=== PATIENT | female | born 1935 | race Caucasian/White ===

== ENCOUNTER 2017-03-10 09:55 | Emergency (ER) | payer MEDICARE, OTHER ==
[2017-03-10 11:09] VITALS: BP 156/42
--- NOTE | 2017-03-10 11:31 | UC ---
Ear Complaint HPI - HPI Summary HPI Summary: 81 year old female with ear complaint. Here w/ RIGHT ear clogged since Tuesday. Saw ENT on 03/07/17 and had earwax removal in RIGHT ear- saw some bloody discharge from right ear w/ earwax removal. Was told to wait 2 days before putting in hearing aid again and to f/u if pain/clogged persists. Tried applying abx ointment in ear. [ End ] - History of Current Complaint Chief Complaint: UCEar Stated Complaint: RIGHT EAR COMPLAINT Time Seen by Provider: 03/10/17 11:24 Hx Obtained From: Patient Onset/Duration: Gradual Onset Severity Initially: Moderate Severity Currently: Mild Associated Signs/Symptoms: Positive: Discharge, Hearing Loss, Foreign Body Sensation - Allergies/Home Medications Allergies/Adverse Reactions: Allergies Allergy/AdvReac Type Severity Reaction Status Date / Time No Known Allergies Allergy Verified 03/10/17 10:56 Home Medications: Home Medications amLODIPine TAB* [Norvasc 5 mg TAB*] 2.5 mg DAILY 03/10/17 [History Confirmed ] PMH/Surg Hx/FS Hx/Imm Hx Previously Healthy: Yes - Surgical History Surgical History: Yes Surgery Procedure, Year, and Place: bladder surgery. aortic valve/bypass. carotid artery - Family History Known Family History: Positive: Unknown Family History: pt knows of no cardio vascular issues in lineage - Social History Occupation: Retired Lives: With Family Alcohol Use: None Substance Use Type: None Smoking Status (MU): Never Smoked Tobacco When Did the Patient Quit Smoking/Using Tobacco: 40* years ago - Immunization History Most Recent Influenza Vaccination: 2017 Review of Systems ENT: Ear Ache Is Patient Immunocompromised?: No All Other Systems Reviewed And Are Negative: Yes Physical Exam Triage Information Reviewed: Yes Appearance: Well-Appearing, No Pain Distress, Well-Nourished Vital Signs: Initial Vital Signs Temp 97.6 F 03/10/17 10:57 Pulse 52 03/10/17 10:57 Resp 16 03/10/17 10:57 BP 156/42 03/10/17 10:57 Pulse Ox 98 03/10/17 10:57 Vital Signs Reviewed: Yes Eye Exam: Normal ENT Exam: Normal ENT: Positive: TM dull, Other - right ear with some dried blood externally and in the canal and some swelling of the ear canal. no Perforated TM. TM visualized. No injection TM. Dental Exam: Normal Neck exam: Normal Neck: Positive: 1 Respiratory Exam: Normal Cardiovascular Exam: Normal Musculoskeletal Exam: Normal Neurological Exam: Normal Psychological Exam: Normal Skin Exam: Normal Ear Complaint Course/Dx - Course Course Of Treatment: treat at this time and f/u with PCP or Audiology or ENT if needed. - Differential Dx/Diagnosis Differential Diagnosis/HQI/PQRI: Cerumen Impaction, Otitis Externa, Otitis Media , Perforated TM Provider Diagnoses: Right Otitis externa. 2) BP - elevated due to urgent care setting Discharge - Discharge Plan Condition: Good Disposition: HOME Prescriptions: Ciproflox/Dexameth OTIC.SUSP* [Ciprodex OTIC.SUSP*] 1 drop .SEE ORDER BID #1 [id number] Patient Education Materials: Otitis Externa (ED) Referrals: Sagar Bowen MD [Primary Care Provider] - 4 Days
== END 2017-03-10 11:48 | disposition home or self-care (01) ==
LOC: UCCORT 09:55
DX: H60.91 Unspecified otitis externa, right ear (principal); R03.0 Elevated blood-pressure reading, without diagnosis of hypertension; Z95.1 Presence of aortocoronary bypass graft; Z87.891 Personal history of nicotine dependence
CPT/HCPCS: 99212; G0463

== ENCOUNTER 2017-04-13 02:03 | Emergency (ER) | payer MEDICARE, OTHER ==
[2017-04-13 02:10] VITALS: BP 116/71
[2017-04-13] MEDS ORDERED: HYDROcodone/ACETAMIN 5-325 MG* 1 TAB PO ONE (03:36)
[2017-04-13] MEDS ORDERED: Diazepam TAB(*) 2 MG PO ONE (03:37)
[2017-04-13] MEDS ORDERED: Diazepam TAB(*) 5 MG PO ONE (03:43)
--- NOTE | 2017-04-13 04:35 | ED ---
Radha Mace Emily, scribed for Rachel Vallejo MD on 04/13/17 at 0343 . Neck Pain - HPI Summary HPI Summary: This patient is an 82 year old F presenting to [facility] accompanied by daughter with a chief complaint of posterior neck pain radiating to bilateral shoulders that began at 1800 yesterday. Pt describes the CC as stiff. The patient rates the pain 8/10 in severity. Symptoms aggravated by nothing. Symptoms alleviated by nothing. Patient reports bruising. Patient denies CP, SOB, EDWARD, blurred vision , diplopia, ear ache, CP, SOB, abd pain, back pain, dysuria, hematochezia, hematuria, leg edema, anxiety, and depression. Pt reports having a similar episode previously. Pt has an appointment with her meat dresser tomorrow. - History of Current Complaint Chief Complaint: EDNeckComplaint Stated Complaint: NECK PAIN Time Seen by Provider: 04/13/17 03:14 Hx Obtained From: Patient Onset/Duration Of Injury/Symptoms: Hours Timing: Constant, Lasting Hours Onset/Duration: Sudden Onset, Started hours ago, Still Present Severity Initially: Severe Severity Currently: Severe Pain Intensity: 8 Pain Scale Used: 0-10 Numeric Character: Stiff Aggravating Factors: Nothing Alleviating Factors: Nothing Associated Signs & Symptoms: Positive: Bruising. Negative: Headache - Allergies/Home Medications Allergies/Adverse Reactions: Allergies Allergy/AdvReac Type Severity Reaction Status Date / Time No Known Allergies Allergy Verified 04/13/17 02:10 PMH/Surg Hx/FS Hx/Imm Hx Previously Healthy: No Endocrine/Hematology History: Reports: Hx Diabetes Denies: Hx Systemic Lupus Erythematosus Cardiovascular History: Reports: Hx Hypertension Denies: Hx Congestive Heart Failure Respiratory History: Reports: Hx Chronic Obstructive Pulmonary Disease (COPD) History: Denies: Hx Dialysis, Hx Renal Disease Musculoskeletal History: Denies: Hx Rheumatoid Arthritis - Cancer History Cancer Type, 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 aortic valve/bypass. carotid artery Infectious Disease History: No Infectious Disease History: Denies: Traveled Outside the [place] in Last 30 Days - Family History Known Family History: Positive: Unknown Family History: pt knows of no cardio vascular issues in lineage - Social History Occupation: Retired Lives: Alone Alcohol Use: None Substance Use Type: Reports: None Smoking Status (MU): Never Smoked Tobacco Review of Systems Negative: Blurred Vision, Diplopia Negative: Ear Ache Negative: Chest Pain Negative: Shortness Of Breath Positive: Other - Negative hematochezia. Negative: Abdominal Pain Negative: dysuria, hematuria Positive: Other - Positive neck pain. Negative back pain. Negative: Edema Positive: Bruising Negative: Headache Negative: Anxious, Depressed All Other Systems Reviewed And Are Negative: No Physical Exam - Summary Physical Exam Summary: Appearance: Alert, conversive, nontoxic appearing Skin: Warm, dry, no mottling, no rashes, no contusions HEENT: EOMI, PERRL, moist mucous membranes Neck: No masses on the neck. Paraspinal tenderness. Trapezius tenderness. Respiratory: Clear to auscultation, breath sounds present, no rales, no rhonchi , no wheezes Cardiovascular: RRR, pulses are symmetrical in both lower and upper extremities Abdomen: Soft, non-tender Bowel Sounds: Present Musculoskeletal: No CVA tenderness, no obvious deformity, moving all extremities in a grossly normal manner Neurological: A&Ox3, CN II-XII Intact, moving all extremities symmetrically Psychiatric: Normal affect and mood Triage Information Reviewed: Yes Vital Signs On Initial Exam: Initial Vitals Temp Pulse Resp BP Pulse Ox 97.9 F 67 16 116/71 96 04/13/17 02:05 04/13/17 02:05 04/13/17 02:05 04/13/17 02:05 04/13/17 02:05 Vital Signs Reviewed: Yes Diagnostics - Vital Signs Vital Signs Temp Pulse Resp BP Pulse Ox 04/13/17 02:05 97.9 F 67 16 116/71 96 - Laboratory Lab Statement: Any lab studies that have been ordered have been reviewed, and results considered in the medical decision making process. Neck Course/Dx - Course Assessment/Plan: This patient is an 82 year old F presenting to [facility] accompanied by daughter with a chief complaint of posterior neck pain radiating to bilateral shoulders that began at 1800 yesterday. Pt describes the CC as stiff. Physical Exam Findings. Paraspinal tenderness. Trapezius tenderness. In the ED course the patient was given valium and norco. Patient will be discharged with follow up from PCP. The patient is agreeable with this plan. - Diagnoses Provider Diagnoses: Neck muscle strain Discharge - Discharge Plan Condition: Stable Disposition: HOME Patient Education Materials: Cervical Strain (ED) Referrals: Sagar Bowen MD [Primary Care Provider] - Additional Instructions: Follow up with your primary care physician. return if worse or any new symptoms. It is important to take all medications as previously instructed. The documentation as recorded by the Radha rogers Emily accurately reflects the service I personally performed and the decisions made by , Rachel Vallejo MD.
== END 2017-04-13 03:55 | disposition home or self-care (01) ==
LOC: ED 02:03
DX: S16.1XXA Strain of muscle, fascia and tendon at neck level, initial encounter (principal); M54.2 Cervicalgia; X58.XXXA Exposure to other specified factors, initial encounter; Y93.9 Activity, unspecified; Y92.9 Unspecified place or not applicable
CPT/HCPCS: 99282; A9270-GY

== ENCOUNTER 2018-02-18 18:38 | Emergency (ER) | payer MEDICARE, OTHER ==
[2018-02-18 19:31] VITALS: BP 152/48
[2018-02-18] MEDS ORDERED: Albuterol/Ipratropium NEB.SOL* Albuterol 2.5 MG/Ipratropium 0.5 MG 3 ML INH ONE (19:52)
[2018-02-18] MEDS ORDERED: predniSONE TAB* 20 MG PO ONE (19:52)
--- NOTE | 2018-02-18 19:56 | UC ---
Respiratory Complaint HPI - HPI Summary HPI Summary: C/O productive cough for 3 days. Not better with inhalers. H/O COPD. - History of Current Complaint Chief Complaint: UCRespiratory Stated Complaint: COUGH,CONGESTION (HAS COPD) Time Seen by Provider: 02/18/18 19:49 Pain Intensity: 0 - Allergies/Home Medications Allergies/Adverse Reactions: Allergies Allergy/AdvReac Type Severity Reaction Status Date / Time No Known Allergies Allergy Verified 02/18/18 19:22 PMH/Surg Hx/FS Hx/Imm Hx Endocrine History: Diabetes Cardiovascular History: Hypertension Respiratory History: COPD Other Cancer History: Nasal - Surgical History Surgical History: Yes Surgery Procedure, Year, and Place: bladder surgery. aortic valve/bypass. carotid artery - Family History Known Family History: Positive: Hypertension, Diabetes Family History: pt knows of no cardio vascular issues in lineage - Social History Occupation: Retired Lives: Alone Alcohol Use: Occasionally Substance Use Type: None Smoking Status (MU): Former Smoker When Did the Patient Quit Smoking/Using Tobacco: 40* years ago - Immunization History Most Recent Influenza Vaccination: 2017 Review of Systems ENT: Nasal Discharge Respiratory: Shortness Of Breath, Cough Is Patient Immunocompromised?: No All Other Systems Reviewed And Are Negative: Yes Physical Exam Triage Information Reviewed: Yes Appearance: Well-Appearing, No Pain Distress, Well-Nourished Vital Signs: Initial Vital Signs Temp 97.6 F 02/18/18 19:26 Pulse 61 02/18/18 19:26 Resp 17 02/18/18 19:26 BP 152/48 02/18/18 19:26 Pulse Ox 99 02/18/18 19:26 Vital Signs Reviewed: Yes Eyes: Positive: Conjunctiva Clear ENT: Positive: Pharynx normal, Nasal congestion, TMs normal Neck exam: Normal Respiratory: Positive: Decreased breath sounds, Wheezing - Occasional expiratory wheezes Cardiovascular: Positive: RRR, Murmur:Sys:Grade _?_/ - 2/6, Other: - paradoxically split S2 Musculoskeletal Exam: Normal Neurological Exam: Normal Psychological Exam: Normal Skin Exam: Normal UC Diagnostic Evaluation - Laboratory O2 Sat by Pulse Oximetry: 99 Respiratory Course/Dx - Differential Dx/Diagnosis Differential Diagnosis/HQI/PQRI: Asthma, Bronchitis, Exacerbation Of COPD, Lower Resp Infection Provider Diagnoses: COPD with acute exacerbation Discharge - Sign-Out/Discharge Documenting (check all that apply): Patient Departure All imaging exams completed and their final reports reviewed: No Studies - Discharge Plan Condition: Stable Disposition: HOME Prescriptions: DOXYcycline CAP(*) [DOXYcycline 100MG CAP(*)] 100 mg PO BID #14 cap predniSONE TAB* [Deltasone 20 MG TAB*] 60 mg PO DAILY #18 tab Patient Education Materials: COPD (Chronic Obstructive Pulmonary Disease) (ED) , Prednisone (By mouth), Doxycycline (By mouth) Referrals: Sagar Bowen MD [Primary Care Provider] - - Billing Disposition and Condition Condition: STABLE Disposition: Home
[2018-02-18] MEDS: DOXYcycline CAP(*) 100 MG PO ONE ×2 (20:06→20:07)
== END 2018-02-18 20:31 | disposition home or self-care (01) ==
LOC: UCCORT 18:38
DX: J44.1 Chronic obstructive pulmonary disease with (acute) exacerbation (principal); E11.9 Type 2 diabetes mellitus without complications; I10 Essential (primary) hypertension; Z87.891 Personal history of nicotine dependence
CPT/HCPCS: 99213; A9270-GY; G0463; J7512

== ENCOUNTER 2018-10-11 20:54 | Emergency (ER) | payer MEDICARE, OTHER ==
[2018-10-11 21:21] VITALS: BP 149/51
--- NOTE | 2018-10-11 21:28 | UC ---
Upper Extremity HPI - HPI Summary HPI Summary: Hit her finger yesterday she thinks, and her L ring finger began to swell. Had to come in tonight b/c her L ring was making her L finger worse. unable to remove ring. she is going to [facility] - History of Current Complaint Chief Complaint: UCUpperExtremity Stated Complaint: LT RING FINGER COMPLAINT Time Seen by Provider: 10/11/18 21:27 Hx Obtained From: Patient Pain Intensity: 8 Pain Scale Used: 0-10 Numeric - Allergies/Home Medications Allergies/Adverse Reactions: Allergies Allergy/AdvReac Type Severity Reaction Status Date / Time No Known Allergies Allergy Verified 10/11/18 21:21 PMH/Surg Hx/FS Hx/Imm Hx Previously Healthy: Yes Endocrine History: Diabetes Cardiovascular History: Cardiac Disease, Hypertension, Atrial Fibrillation - Surgical History Surgical History: Yes Surgery Procedure, Year, and Place: bladder surgery. aortic valve/bypass. carotid artery. right eye - Family History Known Family History: Positive: Unknown, Hypertension, Diabetes Family History: pt knows of no cardio vascular issues in lineage - Social History Alcohol Use: Rare Substance Use Type: None Smoking Status (MU): Former Smoker When Did the Patient Quit Smoking/Using Tobacco: 40* years ago - Immunization History Most Recent Influenza Vaccination: 2017 Review of Systems All Other Systems Reviewed And Are Negative: Yes Constitutional: Negative: Negative Skin: Negative: Bruising Musculoskeletal: Positive: Arthralgia - L ring finger, Edema - L ring finger Physical Exam Triage Information Reviewed: Yes Appearance: Well-Appearing Vital Signs: Initial Vital Signs Temp 97.6 F 10/11/18 21:16 Pulse 64 10/11/18 21:16 Resp 17 10/11/18 21:16 BP 149/51 10/11/18 21:16 Pulse Ox 98 10/11/18 21:16 Vital Signs Reviewed: Yes ENT: Positive: Other - +hearing aides Musculoskeletal: Positive: No Edema - at wrist, Other: - L ring finger swollen w / ring obstructing . Neurological: Positive: Alert Upper Extremity Course/Dx - Course Course Of Treatment: L ring finger swelling after she injured it. There was concern there was a possible fx given degree of swelling; xray did not show obvious fx. Ring cutter used with no complication. Plan is for her to keep ice on it and return if it begins to worsen.. - Differential Dx/Diagnosis Differential Diagnosis/HQI/PQRI: Contusion, Fracture (Closed), Sprain Provider Diagnosis: Swelling of finger joint of left hand Discharge - Sign-Out/Discharge Documenting (check all that apply): Patient Departure All imaging exams completed and their final reports reviewed: No Studies - Discharge Plan Condition: Good Disposition: HOME Patient Education Materials: Swollen Joint (ED) Referrals: Sagar Bowen MD [Primary Care Provider] - Additional Instructions: IF worsening please return. - Billing Disposition and Condition Condition: GOOD Disposition: Home - Attestation Statements Provider Attestation: Per institutional requirements, I have reviewed the chart, however, I was not consulted specifically or made aware of this patient by the midlevel provider. I did not personally evaluate, interact with , or disposition this patient.
== END 2018-10-11 21:55 | disposition home or self-care (01) ==
LOC: UCCORT 20:54
DX: M79.89 Other specified soft tissue disorders (principal); E11.9 Type 2 diabetes mellitus without complications; I10 Essential (primary) hypertension; I48.91 Unspecified atrial fibrillation; Z87.891 Personal history of nicotine dependence
CPT/HCPCS: 73140; 99212; G0463

== ENCOUNTER 2019-01-22 13:22 | Emergency (ER) | payer MEDICARE, OTHER ==
--- OUTSIDE RECORDS SUMMARY | 2019-01-22 13:37 | XMS REPORT | Continuity of Care Document ---
:1935 External Reference #:[id number] Author Name Sagar Bowen M.D. (transmitted by agent of provider Dorie Colon) Address [address], [place] [address] Care Team Providers Name Role Phone Vj Fonseca MD - Cardiovascular Care Team Information Supervisor [employer] Disease Hakeem Snow DPM - Systems Test Analyst Care Team Information Supervisor [employer] Problems Active Problems Provider Date Type 2 diabetes mellitus Sagar Bowen M.D. Onset: 11/30/2010 Benign essential hypertension Sagar Bowen M.D. Onset: 11/30/2010 Pure hypercholesterolemia Sagar Bowen M.D. Onset: 11/30/2010 Asthma without status asthmaticus Sagar Bowen M.D. Onset: 11/30/2010 Aortic valve disorder Martinez Troy M.D., [facility], Onset: 12/26/2014 [facility] Cardiovascular symptoms Martinez Troy M.D., [facility], Onset: 12/26/2014 [facility] Left bundle branch block Martinez Troy M.D., [facility], Onset: 12/26/2014 [facility] Hyperlipidemia Martinez Troy M.D., [facility], Onset: 12/26/2014 [facility] Heart valve replacement Martinez Troy M.D., [facility], Onset: 02/24/2015 [facility] Essential hypertension Martinez Troy M.D., [facility], Onset: 02/24/2015 [facility] Atherosclerotic heart disease of [place] Martinez Troy M.D., [facility], Onset: 02/24 coronary artery without angina pectoris [facility] Paroxysmal atrial fibrillation Martinez Troy M.D., [facility], Onset: 02/24/2015 [facility] Pulmonary embolism Martinez Troy M.D., [facility], Onset: 02/24/2015 [facility] Chronic ischemic heart disease, Martinez Troy M.D., [facility], Onset: 04/28/2015 unspecified [facility] Arteriosclerosis of coronary artery Martinez Troy M.D., [facility], Onset: 2015 bypass graft [facility] Impacted cerumen Benjamin Romero M.D. Onset: 03/07/2017 Sensorineural hearing loss Benjamin Romero M.D. Onset: 03/07/2017 Palpitations Martinez Troy M.D., [facility], Onset: 04/13/2017 [facility] Thoracic aortic ectasia Scout Arias M.D., Onset: 06/09/2018 [facility] Social History Type Date Description Comments Sex Unknown Tobacco Use Start: Unknown 2 cigarettes/day for 20+ years Tobacco Use Start: Unknown End: Former Cigarette quit age 38 Unknown Smoker Smoking Status Reviewed: 12/04/18 Former Cigarette quit age 38 Smoker Tobacco Use Start: Unknown Never Smoked Cigars Tobacco Use Start: Unknown Never Smoked A Pipe Smokeless Tobacco Never Used Smokeless Tobacco ETOH Use 11/24/2012 Rarely consumes alcohol Tobacco Use Start: Unknown End: Patient is a former Couple cigs per day, Unknown smoker quit 40 yrs ago Recreational Drug Use Denies Drug Use Exercise Type/Frequency Exercises regularly treadmill at the fitness center for 30 min 3-4x/week Allergies, Adverse Reactions, Alerts Description No Known Drug Allergies Medications Active Medications SIG Qnty Indications Ordering Date Provider Amlodipine Besylate 1 by mouth every 90tabs I10 Sagar Londono 06/19/2018 day Joycelyn Bowen 5mg Tablets Altace take one capsule 90caps Sagar Londono 06/13/2018 10mg by mouth once a Joycelyn Bowen Capsules day Onetouch Ultrasoft use to test blood 100units Sagar Londono 05/31/2018 Lancets glucose three Joycelyn Bowen Misc times a day and as needed Nitrostat one sl q5min up 14tabs I25.10 Martinez Troy, 12/22/2016 0.3mg to 3 doses as Joycelyn FACC, Tablets Sub needed [facility] Onetouch Ultra Blue Test One Time A 100units Sagar ERizwan 07/26/2016 Day Joycelyn Bowen Strips Onetouch Ultra 2 test blood sugar 100units Sagar E. 07/10/2015 bid or prn Joycelyn Bowen w/Device Kit Proair HFA 2 puffs by mouth 8.5units Sagar E. 06/12/2015 every 4 hours as Joycelyn Bowen 108(90Base) mcg/Act needed Aerosol Caltrate 600+D 1 by mouth twice 180tabs Sagar E. 06/12/2015 a day Joycelyn Bowen [id number]-[id number] Tablets Stool Softener 400mg po at hs 360caps Sagar E. 06/12/2015 Joycelyn Bowen 100mg Capsules Vitamin C 1 by mouth qd 90units Sagar E. 06/12/2015 500mg Joycelyn Bowen Chewtabs Coumadin take 5 mg daily 100tabs Sagar E. 06/12/2015 5mg or as directed Joycelyn Bowen Tablets based on inr- takes 1 and 1/2 tabs 7 days a week 06/21/18 Spiriva Handihaler Inhale The 90caps Sagar E. 06/12/2015 Contents Of One Joycelyn Bowen 18mcg Capsules Capsule (2 Puffs) By Mouth Via Handihaler Daily Folic Acid Take One Tablet 90tabs Sagar E. 06/12/2015 1mg By Mouth Every Joycelyn Bowen Tablets Day Atorvastatin Take One Tablet 90tabs Sagar E. 01/23/2015 Calcium By Mouth Every Joycelyn Bowen 40mg Day Tablets Symbicort inhale two puffs 30.6units Sagar E. 12/05/2014 by mouth twice a Joycelyn Bowen 160-4.5mcg/Act day Aerosol Aerochamber Plus use as directed 1units J45.909 Bertin Marquez NP 12/05/2014 with puffer Misc Metformin HCL Take Two Tablets 360tabs Sagar E. 09/24/2008 500mg By Mouth Twice A Joycelyn Bowen Tablets Day Onetouch Ultrasoft test blood 300units Sagar E. 10/03/2007 Lancets glucose qd-tid as Joycelyn Bowen [facility] needed Onetouch Ultra test blood 1units Sagar E. 10/03/2007 Glucose Monitor glucose qd-tid or Joycelyn Bowen prn Vitamin D3 1 by mouth every 90caps Sagar E. 1000Unit day Joycelyn Bowen Capsules Preservision Areds 1 capsule twice a 180caps Sagar E. day w/food Joycelyn Bowen Capsules Centrum Silver 1 by mouth every 90tabs Sagar E. Ultra Womens day Joycelyn Bowen Tablets Metamucil take 2.08 g by 90caps Sagar E. 0.52gm mouth at hs Joycelyn Bowen Capsules Aspirin take 1 tablet by 90tabs Sagar Londono 81mg mouth once daily Joycelyn Bowen Tablets Furosemide take 1 tablet by 180tabs Scout Leavitt 20mg mouth twice a Joycelyn Arias, Tablets day. LYNN CLOUD Metoprolol Tartrate take 1 tablet 180tabs Scout Leavitt twice daily Joycelyn Arias, 25mg Tablets LYNN CLOUD Klor-Con M20 take one tablet 90tabs Scout Leavitt 20Meq by mouth every Joycelyn Arias, Tablets ER day LYNN CLOUD Amoxicillin take four 4caps Arabella 500mg capsules by mouth Joycelyn Almanzar Capsules 1 hour prior to procedure Ipratropium [place] instill 2 sprays Unknown into each nostril 0.06% Solution twice a day as needed for runny nose Loratadine once a day for Unknown 10mg allergies as Capsules needed Medications Administered in Office Medication SIG Qnty Indications Ordering Provider Date Inj, Regadenoson, 0.1 MG Scout Arias M.D., 11/06/2018 Injection LYNN CLOUD Technetium TC 99M Scout Arias M.D., 11/06/2018 Tetrofosmin, Per Unit Dose FACC, FASNC Up To 40 Millicuries Injection Technetium TC 99M Scout Arias M.D., 11/06/2018 Tetrofosmin, Per Unit Dose FACC, FASNC Up To 40 Millicuries Injection Celestone 3 mg and 3mg Inderjit Hinojosa MD 09/11/2018 Injection Celestone 3 mg and 3mg Inderjit Hinojosa MD 06/16/2018 Injection Shingrix no bill inj-pt Unknown 05/05/2018 brought in Injection Shingrix no bill inj-pt Unknown 01/18/2018 brought in Injection Influenza Virus Vaccine Unknown 01/23/2015 Injection Immunizations CPT Code Status Date Vaccine Lot # [id number] Given 01/01/2017 Influenza Virus Vaccine, Quadrivalent, Split, Preservative Free 82041 Given 01/09/2016 Fluzone High Dose 56159 Given 12/05/2014 Pneumococcal Conjugate Vaccine 13 Valent For [id number] Intramuscular Use 99866 Given 11/23/2014 Pneumococcal Conjugate Vaccine 13 Valent For Intramuscular Use 61177 Given 07/22/2014 Tdap - Tetanus/Diptheria/Acellular Pertussis [id number] Q2039 Given 01/23/2014 Flu Vaccine NOS 47760 Given 01/22/2014 Influenza Virus Vaccine, Quadrivalent, Split, Preservative Free 52140 Given 01/22/2014 Influenza Virus Vaccine, Quadrivalent, Split, [id number] Preservative Free 38914 Given 01/15/2013 Flu Vaccine Split Virus Preservative Free For [id number] Indiv 3Yr Older Q2038 Given 12/30/2011 Fluzone Vaccine [id number] 57580 Given 12/30/2011 Zoster (Zostavax) [id number] 70191 Given 09/30/2004 Td (History By Patient) 85159 Given 10/14/2003 Pneumovax (History By Patient) Vital Signs Date Vital Result Comment 12/04/2018 3:11pm Height 62.5 inches 5'2.50" Weight 197.25 lb Heart Rate 71 /min BP Systolic Sitting 147 mmHg Lue lg cuff BP Diastolic Sitting 64 mmHg Lue lg cuff O2 % BldC Oximetry 95 % BMI (Body Mass Index) 35.5 kg/m2 11/08/2018 1:54pm Height 62.5 inches 5'2.50" Weight 197.00 lb Clothes Heart Rate 78 /min Radial BP Systolic Sitting 160 mmHg Lue LG cuff BP Diastolic Sitting 60 mmHg Lue LG cuff BP Systolic Standing 160 mmHg Lue Lg cuff BP Diastolic Standing 60 mmHg Lue Lg cuff BMI (Body Mass Index) 35.5 kg/m2 Ejection Fraction 55-60% Echocardiogram 06/01/2018 Results Test Date Facility Test Result H/L Range Note Protime W/ Inr 11/28/2018 Other Rendering Inr 2.9 Protime W/ Inr 10/24/2018 Other Rendering Inr 4.0 Protime W/ Inr 09/21/2018 Other Rendering Inr 2.3 Protime W/ Inr 09/14/2018 Other Rendering Inr 4.1 Protime W/ Inr 08/17/2018 Other Rendering Inr 2.8 Protime W/ Inr 08/03/2018 Other Rendering Inr 1.6 Basic Metabolic 07/31/2018 [facility] Sodium 140 mmol/L Normal 135-[address] [place] [address] [phone] Potassium 4.5 mmol/L Normal 3.5-5.0 Chloride 106 mmol/L Normal 101-111 Co2 Carbon Dioxide 27 mmol/L Normal 22-32 Anion Gap 7 mmol/L Normal 2-11 Glucose 107 mg/dL High 70-100 Blood Urea Nitrogen 26 mg/dL High 6-24 Creatinine 0.75 mg/dL Normal 0.51-0.95 BUN/Creatinine Ratio 34.7 High 8-20 Calcium 9.9 mg/dL Normal 8.6-10.3 Egfr Non- 73.6 >60 Egfr 89.1 >60 1 Protime W/ Inr 07/24/2018 Other Rendering Inr 1.8 Protime W/ Inr 07/10/2018 [facility] Inr [address] [place] [address] [phone] Protime W/ Inr 06/21/2018 Other Rendering Inr 2.1 Urine Microalbumin 06/19/2018 [facility] Ur Microalbumin < 15.0 [address] (mg/L) [place] [address] [phone] Urine Creatinine 43.89 mg/dL Urine Microalbumin/Creatinine TNP <31 3 Protime W/ Inr 06/14/2018 Other Rendering Inr 1.7 Lipid Profile 06/12/2018 [facility] Triglycerides 158 mg/dL 4 (Trig/Chol/HDL) [address] [place] [address] [phone] Cholesterol 145 mg/dL 5 HDL Cholesterol 46.0 mg/dL 6 LDL Cholesterol 67 mg/dL 7 Comp Metabolic 06/12/2018 [facility] Sodium 139 mmol/L Normal 135-[address] [place] [address] [phone] Potassium 4.3 mmol/L Normal 3.5-5.0 Chloride 104 mmol/L Normal 101-111 Co2 Carbon Dioxide 26 mmol/L Normal 22-32 Anion Gap 9 mmol/L Normal 2-11 Glucose 113 mg/dL High 70-100 Blood Urea Nitrogen 17 mg/dL Normal 6-24 Creatinine 0.78 mg/dL Normal 0.51-0.95 BUN/Creatinine Ratio 21.8 High 8-20 Calcium 9.6 mg/dL Normal 8.6-10.3 Total Protein 6.6 g/dL Normal 6.4-8.9 Albumin 3.9 g/dL Normal 3.2-5.2 Globulin 2.7 g/dL Normal 2-4 Albumin/Globulin Ratio 1.4 Normal 1-3 Total Bilirubin 0.30 mg/dL Normal 0.2-1.0 Alkaline Phosphatase 64 U/L Normal 34-104 Alt 16 U/L Normal 7-52 Ast 18 U/L Normal 13-39 Egfr Non- 70.4 >60 Egfr 85.1 >60 8 Laboratory test 06/12/2018 [facility] Hemoglobin A1c 6.0 % High 4.0-5.6 9 finding [address] [facility] (Glyco HGB) [place] [address] [phone] Protime W/ Inr 06/07/2018 Other Rendering Inr 1.9 1 Because ethnic data is not always readily available, this report includes an eGFR for both -Americans and non- Americans. The National Kidney Disease Education Program (NKDEP) does not endorse the use of the MDRD equation for patients that are not between the ages of 18 and 70, are , have extremes of body size, muscle mass, or nutritional status, or are non- or non-. According to the National Kidney Foundation, irrespective of diagnosis, the stage of the disease is based on the level of kidney function: Stage Description GFR(mL/min/1.73 m(2)) 1 Kidney damage with normal or decreased GFR 90 2 Kidney damage with mild decrease in GFR 60-89 3 Moderate decrease in GFR 30-59 4 Severe decrease in GFR 15-29 5 Kidney failure <15 (or dialysis) 2 [id number] 3 Unable to calculate due to low microalbumin 4 Desirable: <150 Borderline High: 150-199 High: 200-499 Very High: >500 5 Desirable: <200 Borderline High: 200-239 High: >239 6 Low: <40 Desirable: 40-60 High: >60 7 Desirable: <100 Near Optimal: 100-129 Borderline High: 130-159 High: 160-189 Very High: >189 8 Because ethnic data is not always readily available, this report includes an eGFR for both -Americans and non- Americans. The National Kidney Disease Education Program (NKDEP) does not endorse the use of the MDRD equation for patients that are not between the ages of 18 and 70, are , have extremes of body size, muscle mass, or nutritional status, or are non- or non-. According to the National Kidney Foundation, irrespective of diagnosis, the stage of the disease is based on the level of kidney function: Stage Description GFR(mL/min/1.73 m(2)) 1 Kidney damage with normal or decreased GFR 90 2 Kidney damage with mild decrease in GFR 60-89 3 Moderate decrease in GFR 30-59 4 Severe decrease in GFR 15-29 5 Kidney failure <15 (or dialysis) 9 Therapeutic target for the treatment of diabetes mellitus patients is <7% HBA1C, and in selective patients <6.0%. Please refer to [place] [employer] diabetic care guidelines for further information. Procedures Date Code Description Status 11/08/2018 16307 EKG Tracing & Interpretation Completed 11/06/2018 40096 Stress Test Completed 11/06/2018 83767 Myocardial Perfusion Imaging Tomographic (Spect) Completed Multiple Studies 09/11/2018 70450 Inject/Drain Joint/Bursa Major W/O US Completed 08/01/2018 [id number] Diabetic Foot Exam Completed 07/10/2018 [id number] Mammogram Completed 06/26/2018 [id number] Diabetic Retinal Eye Exam Completed 06/16/2018 27289 Rad Shoulder Comp, Min. 2 Views Completed 06/16/2018 63812 Inject Tendon Sheath Or Ligament Aponeurosis Eg Completed Plantar Fascia 06/09/2018 89382 EKG Tracing & Interpretation Completed 05/02/2018 [id number] Diabetic Foot Exam Completed 01/20/2018 [id number] Diabetic Foot Exam Completed 07/07/2017 [id number] Mammogram Completed 05/18/2017 [id number] Diabetic Retinal Eye Exam Completed 04/15/2017 [id number] Diabetic Foot Exam Completed 11/19/2015 [id number] Diabetic Retinal Eye Exam Completed 12/09/2014 [id number] Diabetic Retinal Eye Exam Completed 07/05/2014 [id number] Mammogram Completed 12/03/2013 [id number] Diabetic Retinal Eye Exam Completed 07/06/2013 [id number] Bone Mineral Density Test Completed 07/06/2013 [id number] Mammogram Completed 06/04/2013 [id number] Diabetic Retinal Eye Exam Completed 01/03/2012 [id number] Colonoscopy Completed 12/14/2011 [id number] Diabetic Foot Exam Completed 11/27/2011 [id number] Mammogram Completed 11/18/2010 [id number] Mammogram Completed 10/22/2009 [id number] Mammogram Completed 02/08/2007 [id number] Colonoscopy Completed Medical Devices Description No Information Available Encounters Type Date Location Provider Dx Diagnosis Office Visit 11/08/2018 [facility] Scout Leavitt Z01.810 Encounter for 2:15p [facility] [place] Arias M.D., preprocedural FACC, FASNC cardiovascular examination I25.10 Athscl heart disease of [place] coronary artery w/o ang pctrs I48.0 Paroxysmal atrial fibrillation Z95.2 Presence of prosthetic heart valve R94.31 Abnormal electrocardiogram [ECG] [EKG] R93.89 Abnormal findings on dx imaging of oth body structures Z79.01 ocean transportation intermediary (current) use of anticoagulants Z95.1 Presence of aortocoronary bypass graft Office Visit 11/07/2018 3:00p [place] Londono Z01.810 Encounter for Pablo Bowen M.D. preprocedural Ccmob cardiovascular examination R93.89 Abnormal findings on dx imaging of oth body structures Z80.41 Family history of malignant neoplasm of ovary I10 Essential (primary) hypertension E11.9 Type 2 diabetes mellitus without complications J45.909 Unspecified asthma, uncomplicated I25.10 Athscl heart disease of [place] coronary artery w/o ang pctrs I48.0 Paroxysmal atrial fibrillation Z95.2 Presence of prosthetic heart valve Office Visit 09/11/2018 10:30a Orthopedic Inderjit Norton M75.41 Impingement Services [facility] [place] Hinojosa MD syndrome of right AT [place] shoulder M75.21 Bicipital tendinitis, right shoulder Office Visit 09/07/2018 3:00p [facility] Sagar Londono I10 Essential ( primary) Pablo - Joycelyn Bowen hypertension Ccmob Office Visit 07/31/2018 1:20p [facility] Sagar Londono Z01.810 Encounter for Pablo - Joycelyn Bowen preprocedural Ccmob cardiovascular examination E11.9 Type 2 diabetes mellitus without complications I10 Essential (primary) hypertension Z95.2 Presence of prosthetic heart valve J45.909 Unspecified asthma, uncomplicated Office Visit 06/20/2018 3:40p [facility] D[facility]at[facility] AT Herbert Zimmerman, L70.0 Acne vulgaris Lyndon REYEZ D22.9 Melanocytic nevi, unspecified L21.8 Other seborrheic dermatitis D17.22 Benign lipomatous neoplasm of skin, subcu of left arm L82.1 Other seborrheic keratosis R60.0 Localized edema Office Visit 06/16/2018 9:00a Orthopedic Inderjit Norton M75.21 Bicipital Services [facility] [place] Hinojosa MD tendinitis, right AT [place] shoulder M25.511 Pain in right shoulder Office Visit 06/09/2018 11:15a Cardiology Scout Tree I77.810 Thoracic aortic Services Of [facility] AT Joycelyn Arias, ectasia [place] FACC, FASNC Z95.2 Presence of prosthetic heart valve Z95.1 Presence of aortocoronary bypass graft Assessments Date Code Description Provider 12/04/2018 I10 Essential (primary) hypertension Sagar Bowen M.D. 12/04/2018 E11.9 Type 2 diabetes mellitus without Sagar Bowen M.D. complications 12/04/2018 J45.909 Unspecified asthma, uncomplicated Sagar Bowen M.D. 12/04/2018 I48.0 Paroxysmal atrial fibrillation Sagar Bowen M.D. 12/04/2018 Z95.2 Presence of prosthetic heart valve Sagar Bowen M.D. 11/08/2018 Z01.810 Encounter for preprocedural Scout Arias M.D., cardiovascular examination [facility] 11/08/2018 I25.10 Athscl heart disease of [place] Scout Arias M.D., coronary artery w/o ang pctrs [facility] 11/08/2018 I48.0 Paroxysmal atrial fibrillation Scout Arias M.D., [facility] 11/08/2018 Z95.2 Presence of prosthetic heart valve Scout Arias M.D., [facility] 11/08/2018 R94.31 Abnormal electrocardiogram [ECG] [EKG] Scout Arias M.D., [facility] 11/08/2018 R93.89 Abnormal findings on dx imaging of [facility] Scout Arias M.D., body structures [facility] 11/08/2018 Z79.01 longterm (current) use of Scout Arias M.D., anticoagulants [facility] 11/08/2018 Z95.1 Presence of aortocoronary bypass graft Scout Arias M.D., [facility] 11/07/2018 Z01.810 Encounter for preprocedural Sagar Bowen M.D. cardiovascular examination 11/07/2018 R93.89 Abnormal findings on dx imaging of [facility] Sagar Bowen M.D. body structures 11/07/2018 Z80.41 Family history of malignant neoplasm Sagar Bowen M.D. of ovary 11/07/2018 I10 Essential (primary) hypertension Sagar Bowen M.D. 11/07/2018 E11.9 Type 2 diabetes mellitus without Sagar Bowen M.D. complications 11/07/2018 J45.909 Unspecified asthma, uncomplicated Sagar Bowen M.D. 11/07/2018 I25.10 Atherosclerotic heart disease of Sagar Bowen M.D. [place] coronary artery with 11/07/2018 I48.0 Paroxysmal atrial fibrillation Sagar Bowen M.D. 11/07/2018 Z95.2 Presence of prosthetic heart valve Sagar Bowen M.D. 11/06/2018 I25.10 Atherosclerotic heart disease of Scout Airas M.D., [place] coronary artery with [facility] 11/06/2018 Z95.1 Presence of aortocoronary bypass graft Scout Arias M.D., [facility] 09/11/2018 M75.41 Impingement syndrome of right shoulder Inderjit Hinojosa MD 09/11/2018 M75.21 Bicipital tendinitis, right shoulder Inderjit Hinojosa MD 09/07/2018 I10 Essential (primary) hypertension Sagar Bowen M.D. 07/31/2018 Z01.810 Encounter for preprocedural Sagar Bowen M.D. cardiovascular examination 07/31/2018 E11.9 Type 2 diabetes mellitus without Sagar Bowen M.D. complications 07/31/2018 I10 Essential (primary) hypertension Sagar Bowen M.D. 07/31/2018 Z95.2 Presence of prosthetic heart valve Sagar Bowen M.D. 07/31/2018 J45.909 Unspecified asthma, uncomplicated Sagar Bowen M.D. 06/20/2018 L70.0 Acne vulgaris Herbert Zimmerman MD 06/20/2018 D22.9 Melanocytic nevi, unspecified Herbert Zimmerman MD 06/20/2018 L21.8 Other seborrheic dermatitis Herbert Zimmerman MD 06/20/2018 D17.22 Benign lipomatous neoplasm of skin and Herbert Zimmerman MD subcutaneous tissue o 06/20/2018 L82.1 Other seborrheic keratosis Herbert Zimmerman MD 06/20/2018 R60.0 Localized edema Herbert Zimmerman MD 06/19/2018 Z00.00 Encounter for general adult medical Sagar Bowen M.D. examination without abno 06/19/2018 I10 Essential (primary) hypertension Sagar Bowen M.D. 06/19/2018 Z95.2 Presence of prosthetic heart valve Sagar Bowen M.D. 06/19/2018 E11.9 Type 2 diabetes mellitus without Sagar Bowen M.D. complications 06/19/2018 E78.5 Hyperlipidemia, unspecified Sagar Bowen M.D. 06/19/2018 J45.909 Unspecified asthma, uncomplicated Sagar Bowen M.D. 06/19/2018 M75.21 Bicipital tendinitis, right shoulder Sagar Bowen M.D. 06/16/2018 M75.21 Bicipital tendinitis, right shoulder Inderjit Hinojosa MD 06/16/2018 M25.511 Pain in right shoulder Inderjit Hinojosa MD 06/09/2018 I77.810 Thoracic aortic ectasia Scout Arias M.D., [facility] 06/09/2018 Z95.2 Presence of prosthetic heart valve Scout Arias M.D., [facility] 06/09/2018 Z95.1 Presence of aortocoronary bypass graft Scout Arias M.D., [facility] Plan of Treatment Future Appointment(s):06/20/2019 1:20 pm - Sagar Bowen M.D. at [facility] - [facility]06/20/2019 2:00 pm - Herbert Zimmerman MD at [facility] Dermatology AT [place]/12/2019 - Sagar Bowen M.D.I10 Essential (primary ) hypertensionComments:Home BPs over the past month in 120s/50s-60s. Continue Rx, home BP checks, and diet/exercise efforts.Follow up:Wellness exam in late May 2019 or prnE11.9 Type 2 diabetes mellitus without complicationsComments:A1c at goal; continue Rx, diet [id number] Unspecified asthma, uncomplicatedComments:No resp sx on RxI48.0 Paroxysmal atrial fibrillationComments:Follows with cardiology; no cardiac c/oZ95.2 Presence of prosthetic heart valve Functional Status Description No Information Available Mental Status Description No Information Available Referrals Description No Information Available
--- OUTSIDE RECORDS SUMMARY | 2019-01-22 13:37 | XMS REPORT | Continuity of Care Document ---
:1935 External Reference #:[id number] Author Name Trav Leavitt M.D. (transmitted by agent of provider Mary Ann Ochoa) Address [address] [place] [address] Care Team Providers Name Role Phone Sagar Bowen M.D. - Internal Care Team Information [employer] Machine Operator [phone] Medicine Problems Active Problems Provider Date Impacted Yudi Caballero PA Onset: 01/07/2012 Social History Type Date Description Comments Sex Unknown Tobacco Use Start: Unknown End: Used To Smoke Cigarettes But Unknown Quit. ETOH Use Rarely consumes alcohol Recreational Drug Use Never Used Drugs Allergies, Adverse Reactions, Alerts Description No Known Drug Allergies Medications Active Medications SIG Qnty Indications Ordering Provider Date Loratadine 1 by mouth every 30tabs Trav Leavitt, 08/29/2018 10mg Tablets day M.D. Ipratropium [place] 2 sprays each 3units Trav Leavitt, 06/28/2018 side daily M.D. 0.06% Solution Fergon Unknown 240(27Fe) mg Tablets Lasix 1 by mouth every Unknown 20mg Tablets day Spiriva Respimat take 2 puffs once Unknown daily. 1.25mcg/Act Aerosol Albuterol Sulfate every 2-4 hours Unknown as needed (2.5mg/3ML) 0.083% Nebulizer Coumadin 1 tab by mouth Unknown 5mg Tablets daily as directed Ramipril 1 by mouth every Unknown 2.5mg Capsules day Metformin HCL 1 by mouth twice Unknown 500mg a day Tablets Potassium Chloride ER 1 by mouth every Unknown day 20Meq Tablets ER Metoprolol Succinate 1 by mouth every Unknown ER day 25mg Tablets ER 24HR Lipitor 1 by mouth every Unknown 40mg Tablets day Preservision Areds Unknown Capsules Metamucil sig. p.o.bid Unknown 0.52gm Capsules Centrum Silver Adult 1 by mouth every Unknown 50+ day Adult 50 Tablets Vitamin C Unknown 500mg Chewtabs Vitamin D 1 by mouth every Unknown 1000Unit day Tablets Colace 1 by mouth twice Unknown 100mg Capsules a day Caltrate 600 Unknown 1500(600Ca) mg Tablets Symbicort 2 puff twice a Unknown day 160-4.5mcg/Act Aerosol Aspirin qday Unknown 81mg Tablets Immunizations Description No Information Available Vital Signs Date Vital Result Comment 12/27/2018 9:51am Weight 201.00 lb Height 63.75 inches 5'3.75" BMI (Body Mass Index) 34.8 kg/m2 BP Systolic 146 mmHg BP Diastolic 73 mmHg Heart Rate 60 /min O2 % BldC Oximetry 96 % Body Temperature 97.2 F Pain Level 0 08/29/2018 2:02pm Weight 198.00 lb Height 63.75 inches 5'3.75" BMI (Body Mass Index) 34.2 kg/m2 BP Systolic 178 mmHg BP Diastolic 70 mmHg Heart Rate 71 /min O2 % BldC Oximetry 98 % Body Temperature 97.6 F Pain Level 0 Results Description No Information Available Procedures Date Code Description Status 06/28/2018 29032 Remove Impacted Cerumen Completed Medical Devices Description No Information Available Encounters Type Date Location Provider Dx Diagnosis Office Visit 08/29/2018 Main Office Bailey Irizarry, H61.21 Impacted cerumen, 2:00p DIRECTOR OF SPEECH PATHOLOGY right ear H69.93 Unspecified Eustachian tube disorder, bilateral Office Visit 06/28/2018 9:15a Main Office Trav Leavitt, H61.23 Christy jean M.D. bilateral H90.3 Sensorineural hearing loss, bilateral J31.0 Chronic rhinitis Assessments Date Code Description Provider 08/29/2018 H61.21 Impacted cerumen, right ear Bailey Irizarry NP 08/29/2018 H69.93 Unspecified Eustachian tube disorder, Bailey Karime Irizarry, DIRECTOR OF SPEECH PATHOLOGY bilateral 06/28/2018 H61.23 Impacted cerumen, bilateral Trav Leavitt M.D. 06/28/2018 H90.3 Sensorineural hearing loss, bilateral Trav Leavitt M.D. 06/28/2018 J31.0 Chronic rhinitis Trav Leavitt M.D. Plan of Treatment No Information Available Functional Status Functional Condition Comment Date Status Hearing Aid in Both ears Active Glasses Active Mental Status Description No Information Available Referrals Description No Information Available
--- OUTSIDE RECORDS SUMMARY | 2019-01-22 13:37 | XMS REPORT ---
:1935 Author Organization [facility] Address [address] [place] [address] Care Team Providers Name Role Phone Vinnie Bermudez Unavailable Unavailable PROBLEMS Type Condition ICD9-CM OCK58-HI Onset Condition SNOMED Code Code Code Dates Status Problem Body mass index Z68.34 Active 020537124857591 (BMI) 34.0-34.9, adult Problem Type 2 diabetes E11.69 Active 52106955720704 mellitus with other specified complication Problem Family history Z80.3 Active 350046275 of malignant neoplasm of breast Problem Age-related M81.0 Active 510196741 osteoporosis without current pathological fracture Problem Family history Z80.41 Active 927307658 of malignant neoplasm of ovary Problem Abnormal R93.8 Active 007355258 findings on diagnostic imaging of other specified body structures ALLERGIES No Information ENCOUNTERS Encounter Location Date Diagnosis [facility] [address] Nov, [place] [id number] [place] [address] Oct, Abnormal findings on [facility] [place] [id number] diagnostic imaging of other specified body structures R93.8 ; Body mass index (BMI) 34.0-34.9, adult Z68.34 ; Family history of malignant neoplasm of ovary Z80.41 ; 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.2 and Polyp of cervix uteri N84.1 [facility] [address] Oct, OBGYN [place] [id number] [facility] [address] Oct, Abnormal findings on [facility], diagnostic imaging of [place] [id number] other specified body structures R93.8 ; Family history of malignant neoplasm of ovary Z80.41 ; Body mass index (BMI) 34.0-34.9, adult Z68.34 ; Type 2 diabetes mellitus with other specified complication E11.69 and Encounter for preprocedural laboratory examination Z01.812 [facility] [address] Sep, [place], [place] [id number] [facility] [address] Sep, [place], [place] [id number] [employer] [facility] [facility] 103 Sep, Abnormal findings on [facility], diagnostic imaging [place] [id number] other specified body structures R93.8 ; Family history of malignant neoplasm of ovary Z80.41 ; Body mass index (BMI) 34.0-34.9, adult Z68.34 and Type 2 diabetes mellitus with other specified complication E11.69 [facility] 103 Sep, Family history of [facility], malignant neoplasm of [place] [id number] ovary Z80.41 [employer] [facility] [facility] 103 May, Encounter for screening [facility], mammogram for malignant [place] [id number] neoplasm of breast Z12.31 [employer] [facility] 103 Mar, [facility], [place] [id number] [facility] 103 Mar, Family history of [facility], malignant neoplasm of [place] [id number] ovary Z80.41 and Encounter for screening mammogram for malignant neoplasm of breast Z12.31 [employer] [facility] [facility] 103 Mar, Abnormal findings on [facility], diagnostic imaging [place] [id number] other specified body structures R93.8 and Family history of malignant neoplasm of ovary Z80.41 [employer] [facility] [facility] 103 August, Family history of [facility], malignant [place]oplasm [place] [id number] ovary Z80.41 and Abnormal findings on diagnostic imaging of other specified body structures R93.8 [facility] 103 August, Family history of [facility], malignant neoplasm of [place] [id number] ovary Z80.41 and Abnormal findings on diagnostic imaging of other specified body structures R93.8 [facility] 103 Jun, Family history of OBGYN [facility], malignant neoplasm of [place] [id number] ovary Z80.41 and Abnormal findings on diagnostic imaging of other specified body structures R93.8 [employer] [facility] 103 Jun, Family history of [facility], malignant neoplasm [place] [id number] ovary Z80.41 [facility] [address] Jun, [place] [id number] [facility] [address] Jun, [place] [id number] [facility] 103 Jun, Encounter for [facility], gynecological examination [place] [id number] (general) (routine) without abnormal findings Z01.419 ; Encounter for screening for malignant neoplasm of colon Z12.11 ; Encounter for screening mammogram for malignant neoplasm of breast Z12.31 ; Age-related osteoporosis without current pathological fracture M81.0 ; Family history of malignant neoplasm of breast Z80.3 and Family history of malignant neoplasm of ovary Z80.41 [facility] [address] Jun, [place] [id number] [facility] 103 Oct, Osteopenia 733.90 [place] [id number] [facility] 103 Sep, Osteopenia 733.90 [place] [id number] [facility] 103 Jun, PAP SMEAR W/O DRUM OPERATOR EXAM OBGYN [facility], V76.2 ; SCREEN [place] [id number] NEOP-COLON V76.51 ; SCREEN MAMMOGRAM NEC V76.12 and Osteopenia 733.90 [employer] [facility] [address] Jun, OBGYN [place] [id number] [employer] [facility] [facility] 103 Jun, ROUTINE DRUM OPERATOR EXAMINATION OBGYN [facility], V72.31 ; SCREEN [place] [id number] NEOP-COLON V76.51 ; SCREEN MAMMOGRAM NEC V76.12 and Osteopenia 733.90 [employer] [facility] [address] May, OBG[place] [id number] [employer] [facility] 103 Nov, GYNECOLOGIC EXAMINATION OBGYN [facility], V72.31 ; SCREEN [place] [id number] NEOP-COLON V76.51 and CONSTIPATION NOS 564.00 [employer] [facility] [facility] 103 May, OBGYN [place] [id number] [employer] [facility] 103 Nov, [place]BG[place] [id number] [employer] [facility] [facility] 103 Oct, ROUTINE DRUM OPERATOR EXAMINATION OBGYN [facility], V72.31 and SCREEN [place] [id number] MAMMOGRAM NEC V76.12 [employer] [facility] 103 August, URINARY INCONTINENCE NOS OBGYN [facility], 788.30 and Prolapse of [place] [id number] female genital organs NOS 618.9 [facility] [address] August, [facility] [place] [id number] [employer] [facility] 103 August, URINARY INCONTINENCE NOS OBGYN [facility], 788.30 and Prolapse [place] [id number] female genital organs NOS 618.9 [employer] [facility] 103 Jul, [facility]ENCE [facility], 788.30 and Prolapse [place] [id number] female genital organs NOS 618.9 [employer] [facility] 103 29 Jun, 2010 URINARY INCONTINENCE NOS OBGYN [facility], 788.30 and Prolapse [place] [id number] female genital organs NOS 618.9 [employer] [facility] [facility] 103 23 Jun, 2010 FEM STRESS INCONTINENCE OBGYN [facility], 625.6 [place] [id number] [employer] [facility] 103 16 Jun, 2010 URINARY INCONTINENCE NOS OBGYN [facility], 788.30 and Prolapse [place] [id number] female genital organs NOS 618.9 [employer] [facility] 103 Jul, GYNECOLOGIC EXAMINATION OBGYN [facility], V72.31 and Osteopenia [place] [id number] 733.90 [employer] [facility] 103 Nov, OBGYN [facility], [place] [id number] [employer] [facility] 103 August, Incontinence 788.30 and OBGYN [facility], Osteopenia 733.90 [place] [id number] [employer] [facility] [facility] 103 Jul, GYNECOLOGIC EXAMINATION OBGYN [facility], V72.31 ; SCREEN [place] [id number] NEOP-COLON V76.51 and Incontinence 788.30 [employer] [facility] 103 Oct, GYNECOLOGIC EXAMINATION OBGYN [facility], V72.31 [place] [id number] IMMUNIZATIONS No Known Immunizations SOCIAL HISTORY Never Assessed REASON FOR REFERRAL FUNCTIONAL STATUS PLAN OF CARE VITAL SIGNS MEDICATIONS Unknown Medications PROCEDURES Procedure Date Ordered Result Body Site BIOPSY OF CERVIX November 14, 2018 PARACERVICAL BLOCK November 14, 2018 US GUIDE, INTRAOP November 14, 2018 HYSTEROSCOPY, BIOPSY November 14, 2018 RESULTS No Results REASON FOR VISIT US-guided hysteroscopy/D+C Insurance Providers [facility] Member Patient Patient Patient Patient Patient Subscriber Subscriber Subscriber Group Insurance Plan Plan Plan Plan ID Relationship Address Phone Name Date of ID Name Date of No Type Insurance Insurance Insurance Coverage to Subscriber Address Phone Name Dates Lifetime [phone] Lifetime self Arminda [id number] Benefit [place] [address] [employer]it [employer] [place] [id number] Medicare [address] Medicare self Arminda [id number] [place] [address] Medicare [address] Medicare self Arminda [id number] [place] [address] MEDICAL (GENERAL) HISTORY Type Description Date Medical History HTN Medical History hypercholesterolemia Medical History asthma Medical History reflux Medical History IBS Medical History Heart disease Medical History Basal cell carcinoma Medical History COPD Surgical History tonsillectomy as a child Surgical History tubal ligation Surgical History fatty tumor L arm 1988 Surgical History skin tumor removed over Lf eyelid Surgical History TOT with MiniArc 09/10/10 Surgical History cataract surgery fall Surgical History Triple bypass and aortic valve replacement 2014 Surgical History Left coratid artery cleaned Surgical History Basal cell carcinoma removed from nose 02/2017 Surgical History Basal cell carcinoma removed from nose 05/2017 Surgical History surgery on RT eye 06/2018 Hospitalization History childbirth Hospitalization History tubaligation
--- OUTSIDE RECORDS SUMMARY | 2019-01-22 13:37 | XMS REPORT ---
:1935 Author Organization [facility] Address [address] [place] [address] Care Team Providers Name Role Phone Vinnie Bermudez Unavailable Unavailable PROBLEMS Type Condition ICD9-CM [id number] Onset Condition SNOMED Code Code Code Dates Status Problem Body mass index Z68.34 Active 866673209628431 (BMI) 34.0-34.9, adult Problem Type 2 diabetes E11.69 Active 49940930533587 mellitus with other specified complication Problem Family history Z80.3 Active 814178234 of malignant neoplasm of breast Problem Age-related M81.0 Active 732729543 osteoporosis without current pathological fracture Problem Family history Z80.41 Active 367090531 of malignant neoplasm of ovary Problem Abnormal R93.8 Active 717056544 findings on diagnostic imaging of other specified body structures ALLERGIES No Known Allergies ENCOUNTERS Encounter Location Date Diagnosis [facility] Nov, Abnormal findings on OBGYN [facility], diagnostic imaging of [place] [id number] other specified body structures R93.89 [facility] [address] Oct, Abnormal findings on [facility] [place] [id number] diagnostic imaging of other specified body structures R93.8 ; Body mass index (BMI) 34.0-34.9, adult Z68.34 ; Family history of malignant neoplasm of ovary Z80.41 ; 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, diagnostic imaging [place] [id number] other specified body structures R93.8 ; Family history of malignant neoplasm of ovary Z80.41 ; Body mass index (BMI) 34.0-34.9, adult Z68.34 ; Type 2 diabetes mellitus with other specified complication E11.69 and Encounter for preprocedural laboratory examination Z01.812 [facility] Sep, [place] [id number] [facility] 103 Sep, [place] [id number] [facility] 103 Sep, Abnormal findings on [facility], diagnostic imaging of [place] [id number] other specified body structures R93.8 ; Family history of malignant neoplasm of ovary Z80.41 ; Body mass index (BMI) 34.0-34.9, adult Z68.34 and Type 2 diabetes mellitus with other specified complication E11.69 [facility] 103 Sep, Family history of [facility], malignant [place]oplasm [place] [id number] ovary Z80.41 [facility] 103 May, Encounter for screening [facility], mammogram for malignant [place] [id number] neoplasm of breast Z12.31 [facility] [address] Mar, [facility] [place] [id number] [facility] 103 Mar, Family history of [facility], malignant [place]oplasm [place] [id number] ovary Z80.41 and Encounter for screening mammogram for malignant neoplasm of breast Z12.31 [facility] 103 Mar, Abnormal findings on [facility], diagnostic imaging of [place] [id number] other specified body structures R93.8 and Family history of malignant neoplasm of ovary Z80.41 [facility] 103 August, Family history of OBG[facility], [place]oplasm [place] [id number] ovary Z80.41 and Abnormal findings on diagnostic imaging of other specified body structures R93.8 [facility] 103 August, Family history of OBGYN [facility], [place]oplasm [place] [id number] ovary Z80.41 and Abnormal findings on diagnostic imaging of other specified body structures R93.8 [facility] 103 Jun, Family history of OBGYN [facility], [place] [id number] ovary Z80.41 and Abnormal findings on diagnostic imaging of other specified body structures R93.8 [facility] 103 Jun, Family history of OBGYN [facility], malignant [place]oplasm [place] [id number] ovary Z80.41 [facility] 103 Jun, [place] [id number] [facility] 103 Jun, OBG[place] [id number] [facility] [address] Jun, [address] [facility], gynecological examination [place] [id number] (general) (routine) without abnormal findings Z01.419 ; Encounter for screening for malignant neoplasm of colon Z12.11 ; Encounter for screening mammogram for malignant neoplasm of breast Z12.31 ; Age-related osteoporosis without current pathological fracture M81.0 ; Family history of malignant neoplasm of breast Z80.3 and Family history of malignant neoplasm of ovary Z80.41 [facility] 103 Jun, [place] [id number] [facility] 103 Oct, Osteopenia 733.90 [place] [id number] [facility] 103 Sep, Osteopenia 733.90 [place] [id number] [facility] 103 09 Mar, 2015 PAP SMEAR W/O EMBRYOLOGY PROFESSOR EXAM OBGYN [facility], V76.2 ; SCREEN [place] [id number] NEOP-COLON V76.51 ; SCREEN MAMMOGRAM NEC V76.12 and Osteopenia 733.90 [facility] 103 Jun, OBG[place], [place] [id number] [facility] 103 Jun, ROUTINE EMBRYOLOGY PROFESSOR EXAMINATION OBGYN [facility], V72.31 ; SCREEN [place] [id number] NEOP-COLON V76.51 ; SCREEN MAMMOGRAM NEC V76.12 and Osteopenia 733.90 [facility] 103 May, OBG[place] [id number] [facility] 103 Nov, GYNECOLOGIC EXAMINATION OBGYN [facility], V72.31 ; SCREEN [place] [id number] NEOP-COLON V76.51 and CONSTIPATION NOS 564.00 [facility] 103 14 May, 2011 OBG[place], [place] [id number] [facility] 103 Nov, OBG[place] [id number] [facility] 103 Oct, ROUTINE EMBRYOLOGY PROFESSOR EXAMINATION OBGYN [facility], V72.31 and SCREEN [place] [id number] MAMMOGRAM NEC V76.12 [facility] 103 August, URINARY INCONTINENCE NOS OBGYN [facility], 788.30 and Prolapse of [place] [id number] female genital organs NOS 618.9 [facility] [address] August, [place] [id number] [facility] 103 August, URINARY INCONTINENCE NOS OBGYN [facility], 788.30 and [place] [id number] female genital organs NOS 618.9 [facility] 103 Jul, URINARY INCONTINENCE NOS OBGYN [facility], 788.30 and [place] [id number] female genital organs NOS 618.9 [facility] 103 Jun, URINARY INCONTINENCE NOS [facility]BGYN [facility], 788.30 and [place] [id number] female genital organs NOS 618.9 [facility] 103 Jun, FEM STRESS INCONTINENCE OBGYN [facility], 625.6 [place] [id number] [facility] 103 16 Jun, 2010 URINARY INCONTINENCE NOS OBGYN [facility], 788.30 and [place] [id number] female genital organs NOS 618.9 [facility] 103 Jul, GYNECOLOGIC EXAMINATION OBGYN [facility], V72.31 and Osteopenia [place] [id number] 733.90 [facility] 103 Nov, OBGYN [facility], [place] [id number] [facility] 103 August, Incontinence 788.30 and OBGYN [facility], Osteopenia 733.90 [place] [id number] [facility] 103 Jul, GYNECOLOGIC EXAMINATION OBN [facility], V72.31 ; SCREEN [place] [id number] NEOP-COLON V76.51 and Incontinence 788.30 [facility] 103 Oct, GYNECOLOGIC EXAMINATION OBGYN [facility], V72.31 [place] [id number] IMMUNIZATIONS No Known Immunizations SOCIAL HISTORY Never Assessed REASON FOR REFERRAL FUNCTIONAL STATUS PLAN OF CARE Activity Details Follow Up Schedule annual exam after 10-12-19 Reason: VITAL SIGNS Height 63 in 2018-11-27 Weight 197 lbs 2018-11-27 BMI 34.89 kg/m2 2018-11-27 Blood pressure systolic 138 mm Hg 2018-11-27 Blood pressure diastolic 60 mm Hg 2018-11-27 MEDICATIONS Medication Instructions Dosage Frequency Start End Duration Status Date Date Metformin 500 mg Oral bid 1 tab 12h Active Lasix 20 mg orally BID 1 tab(s) 12h Active colace 1 12h Active Metamucil 3.4 orally 3 times a 8h Active g/5.2 g day antihistamine Active ramipril 5 mg orally QD 1 cap(s) 24h Active Caltrate 600 mg orally qd 2 tab(s) 24h 30 day(s) Active Coumadin 1 mg orally 5mg for 2 Active days and 5 days a week 7.5 mg amlodipine 2.5 mg orally once a 1 tab(s) 24h Active day Symbicort 160 inhaled 2 times 2 puff(s) 12h Active mcg-4.5 mcg/inh a day folic acid 1 mg orally once a 1 tab(s) 24h Active day albuterol inhaler 2 puffs Active 90 ug/inhalation atorvastatin 40 orally once a 1 tab(s) 24h Active mg day Spiriva 18 mcg inhaled once a 1 cap(s) 24h Active day Centrum Silver orally once a 1 tab(s) 24h Active Therapeutic day Multiple Vitamins with Minerals Vitamin D3 1000 orally once a 1 tab(s) 24h 30 day(s) Active intl units day potassium orally qd 1 tab(s) 24h Active chloride 20 mEq Vitamin C 500 mg orally once a 1 tab(s) 24h Active day Ventolin HFA CFC inhaled 4 times 2 puff(s) 6h 30 day(s) Active free 90 mcg/inh a day ASA 81mg 1 30 days Active preservision 1 12h Active PROCEDURES Procedure Date Ordered Result Body Site DOC MEDS VERIFIED W/PT OR RE Nov 27, 2018 PRES/ABSN URINE INCON ASSESS Nov 27, 2018 RESULTS No Results REASON FOR VISIT post op Insurance Providers [facility] Member Patient Patient Patient Patient Patient Subscriber Subscriber Subscriber Group Insurance Plan Plan Plan Plan ID Relationship Address Phone Name Date of ID Name Date of No Type Insurance Insurance Insurance Coverage to Subscriber Address Phone Name Dates Lifetime [phone] Lifetime self Arminda [id number] Benefit [place] [address] Benefit [employer] [place] Reina blanche [address] Medicare [phone] Medicare self Arminda [id number] [place] [address] Medicare [phone] Medicare self Arminda [id number] [place] [address] MEDICAL (GENERAL) HISTORY Type Description Date Medical [...]
[2019-01-22 14:05] VITALS: BP 149/57
--- NOTE | 2019-01-22 14:15 | UC ---
General HPI - HPI Summary HPI Summary: pt is c/o episodes of sharp pains from her ears that radiate into her head. onset yesterday. she points to the sides of her neck as source of pain. they occur at random. no headache, neck pain or hx injury. no difficulty with speech, balance, walking and no visual deficits. no focal numbness or weakness. no cp or sob. - History of Current Complaint Chief Complaint: UCEar Stated Complaint: BILAT EAR PAIN Time Seen by Provider: 01/22/19 14:08 Hx Obtained From: Patient Onset/Duration: Sudden Onset Timing: Intermittent Episodes Lasting: - seconds Pain Intensity: 6 Aggravating: nothing - Allergy/Home Medications Allergies/Adverse Reactions: Allergies Allergy/AdvReac Type Severity Reaction Status Date / Time No Known Allergies Allergy Verified 01/22/19 14:00 Home Medications: Home Medications LoraTADine TAB(NF) [Claritin 10 MG TAB(NF)] 10 mg PO DAILY 01/22/19 [History Confirmed 01/22/19] PMH/Surg Hx/FS Hx/Imm Hx Endocrine History: Diabetes, Dyslipidemia Cardiovascular History: Cardiac Disease, Hypertension, Other - Surgical History Surgical History: Yes Surgery Procedure, Year, and Place: bladder surgery. aortic valve/bypass. carotid artery. right eye - Family History Known Family History: Positive: Unknown, Hypertension, Diabetes Family History: pt knows of no cardio vascular issues in lineage - Social History Alcohol Use: Rare Substance Use Type: None Smoking Status (MU): Former Smoker Length of Time of Smoking/Using Tobacco: ~1/7 PPD x 20 Years When Did the Patient Quit Smoking/Using Tobacco: ~1980 - Immunization History Most Recent Influenza Vaccination: 2017 Review of Systems All Other Systems Reviewed And Are Negative: No Constitutional: Negative: Fever, Chills Eyes: Negative: Blurred Vision ENT: Negative: Dental Pain, Sore Throat, Sinus Congestion Respiratory: Negative: Shortness Of Breath, Cough Cardiovascular: Negative: Palpitations, Chest Pain Motor: Negative: Weakness Neurological: Negative: Headache, Weakness, Paresthesia, Numbness Physical Exam Triage Information Reviewed: Yes Appearance: Well-Appearing Vital Signs: Initial Vital Signs Temp 98 F 01/22/19 13:58 Pulse 74 01/22/19 13:58 Resp 18 01/22/19 13:58 BP 149/57 01/22/19 13:58 Pulse Ox 97 01/22/19 13:58 Vital Signs Reviewed: Yes Eyes: Positive: Conjunctiva Clear, Other: - s/p cataract. eomi. ENT: Positive: Pharynx normal, TMs normal, Other - No auricular adenopathy or mastoid tenderness. hearing aides removed for exam then returned to ears.. Negative: Nasal congestion, Nasal drainage Neck: Positive: Supple, Nontender, No Lymphadenopathy, Other: - Murmur over each carotid artery refer from heart. No JVD.. Negative: Nuchal Rigidity Respiratory: Positive: Lungs clear, Normal breath sounds Cardiovascular: Positive: RRR, Pulses Normal - BUE's, Other: - Pansystolic murmur over base. Abdomen Description: Positive: Nontender, No Organomegaly, Soft. Negative: Pulsatile Mass Bowel Sounds: Positive: Present Musculoskeletal: Positive: ROM Intact Neurological: Positive: Other: - A&O x3. CN grossly intact. Speech is fluent. s/ v/m intact x4. Steady gait. No temporal artery cords or tenderness. Pt observed having an episode of pain and grabbed side of neck(site of pain on L neck) that she notes radiated into her ears and then sides of her head. it was fleeting. Psychological: Positive: Age Appropriate Behavior Skin Exam: Normal Skin: Negative: Rashes Course/Dx - Course Course Of Treatment: Pt agrees to ER transfer but is refusing EMS. I have advised or risk for MVA, worsening, disability and ; however, pt is still refusing EMS. She is A& Ox3 and able to make decisions thus I must respect her wish to drive self to [facility]. [facility] called. Report given to Josselin Quijano NP including hx, pe and concern for vascular pathology tycinthiat in my opinion needs CTA. I also advised pt is refusing EMS. - Differential Dx - Multi-Symptom Differential Diagnoses: Other - pt hx and PE is concerning for a vascular pathology. case d/w Dr Vaz who agrees thus will transfer to the ER. - Diagnoses Provider Diagnosis: Neck pain, Otalgia of both ears, Head pain Discharge ED - Sign-Out/Discharge Documenting (check all that apply): Patient Departure All imaging exams completed and their final reports reviewed: No Studies - Discharge Plan Condition: Stable Disposition: TRANS [facility] CARE F[facility] Referrals: Sagar Bowen MD [Primary Care Provider] - Additional Instructions: LEAVE HERE AND GO DIRECTLY TO THE [facility]INDA LISA HAS DISCUSSED. - Billing Disposition and Condition Condition: STABLE Disposition: Trans Higher Lvl of Care Fac
== END 2019-01-22 14:43 | disposition short-term general hospital (02) ==
LOC: UCCORT 13:22
DX: M54.2 Cervicalgia (principal); H92.03 Otalgia, bilateral; R51 Headache; E11.9 Type 2 diabetes mellitus without complications; I10 Essential (primary) hypertension; Z87.891 Personal history of nicotine dependence
CPT/HCPCS: 99212; G0463

== ENCOUNTER 2020-08-07 22:38 | Inpatient (IN) ==
[2020-08-08 01:24] LABS: ABS Basophils 0.1 10^3/ul (0-0.2); ABS Eosinophils 0.3 10^3/ul (0-0.6); ABS Lymphocytes 1.6 10^3/ul (1.0-4.8); ABS Monocytes 0.6 10^3/ul (0-0.8); ABS Neutrophils 8.9 10^3/ul (1.5-7.7); Eosinophil % 2.7 %; Hematocrit 26 % (35-47); Hemoglobin 8.4 g/dL (12.0-16.0); Mean Corpuscular HGB Conc 33 g/dL (31-36); Mean Corpuscular Hemoglobin 30 pg (27-31); Mean Corpuscular Volume 92 fL (80-97); Mean Platelet Volume 8.6 fL (7.4-10.4); Platelet Count 277 10^3/uL (150-450); Red Blood Count 2.78 10^6 /uL (3.70-4.87); Red Cell Distribution Width 14 % (10-15); White Blood Count 11.5 10^3/uL (3.5-10.8)
[2020-08-08 01:41] LABS: ALT 32 U/L (7-52); AST 23 U/L (13-39); Albumin 3.4 g/dL (3.2-5.2); Albumin/Globulin Ratio 1.1 (1-3); Alkaline Phosphatase 120 U/L (34-104); Anion Gap 8 mmol/L (2-11); BUN/Creatinine Ratio 38.6 (8-20); Blood Urea Nitrogen 39 mg/dL (6-24); C Reactive Protein 29.16 mg/L (<8.01); CO2 Carbon Dioxide 26 mmol/L (22-32); Calcium 9.9 mg/dL (8.6-10.3); Chloride 98 mmol/L (101-111); EGFR African American 62.9 (>60); Glucose 134 mg/dL (70-100); Potassium 4.7 mmol/L (3.5-5.0); Sodium 132 mmol/L (135-145); Total Protein 6.4 g/dL (6.4-8.9)
[2020-08-08 01:42] LABS: Troponin I 0.01 ng/mL (<0.03)
[2020-08-08] MEDS ORDERED: NS 0.9% 1000 ml BAG 1,000 ML IV ONE (01:43)
[2020-08-08 02:08] LABS: INR 6.93 (0.82-1.09)
[2020-08-08 02:35] LABS: TSH Ultra Thyroid Stim Horm 3.16 mcIU/mL (0.34-5.60)
[2020-08-08] MEDS ORDERED: Phytonadione Oral Solution 5 MG/25 ML UDC PO ONE (03:33)
[2020-08-08] MEDS ORDERED: Lactated Ringers 1000 ml BAG 1,000 ML IV ONE (03:36)
[2020-08-08] MEDS ORDERED: Albuterol HFA INHALER 8 gm MDI INH PRN (04:31)
[2020-08-08] MEDS ORDERED: Dextrose 50% Syringe 50 ml 25 GM/50 ML SYRINGE IV PUSH PRN (04:51)
[2020-08-08 05:04] LABS: Iron 22 ug/dL (50-212)
[2020-08-08 05:05] LABS: % Iron Saturation 8 % (15-55); Total Iron Binding Capacity 283 mcg/dL (250-450); Transferrin 202 mg/dL (203-362); Unsaturated Iron Binding < 268 ug/dL
[2020-08-08 05:22] LABS: Ferritin 38.9 ng/mL (11-307)
[2020-08-08 06:26] LABS: ABS Basophils 0.1 10^3/ul (0-0.2); ABS Eosinophils 0.1 10^3/ul (0-0.6); ABS Lymphocytes 1.4 10^3/ul (1.0-4.8); ABS Monocytes 0.6 10^3/ul (0-0.8); ABS Neutrophils 9.5 10^3/ul (1.5-7.7); Eosinophil % 0.9 %; Hematocrit 24 % (35-47); Hemoglobin 7.9 g/dL (12.0-16.0); Lymphocyte % 11.9 %; Mean Corpuscular HGB Conc 33 g/dL (31-36); Mean Corpuscular Hemoglobin 30 pg (27-31); Mean Corpuscular Volume 92 fL (80-97); Platelet Count 248 10^3/uL (150-450); Red Blood Count 2.63 10^6 /uL (3.70-4.87); Red Cell Distribution Width 14 % (10-15); White Blood Count 11.7 10^3/uL (3.5-10.8)
[2020-08-08 06:47] LABS: BUN/Creatinine Ratio 44.6 (8-20); Calcium 9.1 mg/dL (8.6-10.3); EGFR Non-African American 57.9 (>60); Potassium 4.4 mmol/L (3.5-5.0)
[2020-08-08 06:49] LABS: Troponin I 0.01 ng/mL (<0.03)
[2020-08-08 07:11] LABS: INR 6.64 (0.82-1.09)
[2020-08-08] MEDS: SPIRIVA Respimat (tiotropium) 2.5 mcg/inh Inhaler INH SCH (08:05)
[2020-08-08] MEDS: Mometasone/Formoter 200/5 MDI INH SCH ×2 (08:06→22:44)
[2020-08-08] MEDS ORDERED: Pantoprazole VIAL 40 MG VIAL IV SCH (09:00)
[2020-08-08 10:10] LABS: Hematocrit 22 % (35-47); Hemoglobin 7.3 g/dL (12.0-16.0)
[2020-08-08] MEDS ORDERED: Phytonadione 10 mg in 50 mL NS over 30 min IV ONE (11:00)
[2020-08-08] MEDS ORDERED: Prothrombin Complex Conc. DOSE = Units Factor IX (nine) IV SLOW PU ONE (11:50)
[2020-08-08] MEDS: Pantoprazole 80 mg in NS BAG 80 MG/250 ML BAG IV SCH (12:09)
[2020-08-08 14:19] LABS: INR 0.97 (0.82-1.09)
[2020-08-08] MEDS ORDERED: Midazolam 10 mg/10 ml VIAL 1 mg/ml 10 ml VIAL (10 mg) ONE (14:32)
[2020-08-08] MEDS ORDERED: fentaNYL 100 mcg/2 ml 50 MCG/ML VIAL ONE (14:33)
[2020-08-08 20:16] LABS: Hematocrit 23 % (35-47); Hemoglobin 7.8 g/dL (12.0-16.0)
[2020-08-08] MEDS: Nystatin SUSPENSION 100,000 UNITS/ML UDC SWISH SWAL SCH (21:30)
[2020-08-08 21:52] LABS: Hematocrit 23 % (35-47); Hemoglobin 7.7 g/dL (12.0-16.0)
[2020-08-09] MEDS: Pantoprazole 80 mg in NS BAG 80 MG/250 ML BAG IV SCH ×3 (00:10→22:30)
[2020-08-09 03:24] LABS: ABS Basophils 0.1 10^3/ul (0-0.2); ABS Eosinophils 0.3 10^3/ul (0-0.6); ABS Monocytes 0.7 10^3/ul (0-0.8); ABS Neutrophils 7.9 10^3/ul (1.5-7.7); Eosinophil % 2.8 %; Hematocrit 25 % (35-47); Hemoglobin 8.5 g/dL (12.0-16.0); Lymphocyte % 18.1 %; Mean Corpuscular HGB Conc 35 g/dL (31-36); Mean Corpuscular Hemoglobin 31 pg (27-31); Mean Corpuscular Volume 90 fL (80-97); Mean Platelet Volume 8.3 fL (7.4-10.4); Platelet Count 212 10^3/uL (150-450); Red Blood Count 2.71 10^6 /uL (3.70-4.87); Red Cell Distribution Width 14 % (10-15)
[2020-08-09 03:25] LABS: Hematocrit 25 % (35-47); Hemoglobin 8.3 g/dL (12.0-16.0)
[2020-08-09 03:30] LABS: INR 1.02 (0.82-1.09)
[2020-08-09 03:45] LABS: BUN/Creatinine Ratio 33.3 (8-20); Calcium 8.2 mg/dL (8.6-10.3); EGFR African American 77.8 (>60); EGFR Non-African American 64.3 (>60); Potassium 3.8 mmol/L (3.5-5.0)
[2020-08-09] MEDS: SPIRIVA Respimat (tiotropium) 2.5 mcg/inh Inhaler INH SCH (08:23)
[2020-08-09] MEDS: Mometasone/Formoter 200/5 MDI INH SCH ×2 (08:24→20:27)
[2020-08-09] MEDS: Nystatin SUSPENSION 100,000 UNITS/ML UDC SWISH SWAL SCH ×4 (09:18→22:16)
[2020-08-09 10:00] LABS: Urine Appearance Clear; Urine Bilirubin Negative (Negative); Urine Blood Negative (Negative); Urine Color Yellow; Urine Glucose Negative (Negative); Urine Ketones Negative (Negative); Urine Nitrite Negative (Negative); Urine Protein Negative (Negative); Urine Specific Gravity 1.018 (1.002-1.030); Urine Urobilinogen Negative (Negative)
[2020-08-09 10:27] LABS: Urine Bacteria Absent (Absent); Urine Red Blood Cell Trace(0-2/hpf) (Absent); Urine Squamous Epithelial Cell Present (Absent); Urine White Blood Cell 2+(11-20/hpf) (Absent)
[2020-08-09 17:24] LABS: Hematocrit 28 % (35-47); Hemoglobin 8.8 g/dL (12.0-16.0)
[2020-08-10 06:08] LABS: ABS Basophils 0.1 10^3/ul (0-0.2); ABS Eosinophils 0.6 10^3/ul (0-0.6); ABS Lymphocytes 1.8 10^3/ul (1.0-4.8); ABS Monocytes 0.7 10^3/ul (0-0.8); ABS Neutrophils 6.9 10^3/ul (1.5-7.7); Eosinophil % 5.7 %; Hematocrit 24 % (35-47); Hemoglobin 7.9 g/dL (12.0-16.0); Lymphocyte % 17.6 %; Mean Corpuscular HGB Conc 34 g/dL (31-36); Mean Corpuscular Hemoglobin 31 pg (27-31); Mean Corpuscular Volume 92 fL (80-97); Mean Platelet Volume 8.2 fL (7.4-10.4); Platelet Count 199 10^3/uL (150-450); Red Blood Count 2.56 10^6 /uL (3.70-4.87); Red Cell Distribution Width 14 % (10-15)
[2020-08-10 06:24] LABS: BUN/Creatinine Ratio 19.2 (8-20); Calcium 8.1 mg/dL (8.6-10.3); EGFR African American 84.7 (>60); Potassium 3.8 mmol/L (3.5-5.0)
[2020-08-10] MEDS: Mometasone/Formoter 200/5 MDI INH SCH ×2 (07:19→19:31)
[2020-08-10] MEDS: SPIRIVA Respimat (tiotropium) 2.5 mcg/inh Inhaler INH SCH (07:19)
[2020-08-10] MEDS: Nystatin SUSPENSION 100,000 UNITS/ML UDC SWISH SWAL SCH ×4 (09:06→21:59)
[2020-08-10] MEDS: Pantoprazole 80 mg in NS BAG 80 MG/250 ML BAG IV SCH ×2 (10:27→22:44)
[2020-08-10 17:54] LABS: Hematocrit 30 % (35-47); Hemoglobin 9.8 g/dL (12.0-16.0)
[2020-08-11] MEDS: Mometasone/Formoter 200/5 MDI INH SCH ×2 (07:55→19:35)
[2020-08-11] MEDS: SPIRIVA Respimat (tiotropium) 2.5 mcg/inh Inhaler INH SCH (07:56)
[2020-08-11] MEDS: Pantoprazole 80 mg in NS BAG 80 MG/250 ML BAG IV SCH (08:29)
[2020-08-11 08:45] LABS: ABS Basophils 0.1 10^3/ul (0-0.2); ABS Eosinophils 0.3 10^3/ul (0-0.6); ABS Lymphocytes 1.6 10^3/ul (1.0-4.8); ABS Monocytes 0.7 10^3/ul (0-0.8); ABS Neutrophils 8.8 10^3/ul (1.5-7.7); Eosinophil % 2.9 %; Hematocrit 30 % (35-47); Hemoglobin 10.1 g/dL (12.0-16.0); Lymphocyte % 13.7 %; Mean Corpuscular HGB Conc 34 g/dL (31-36); Mean Corpuscular Hemoglobin 31 pg (27-31); Mean Corpuscular Volume 91 fL (80-97); Mean Platelet Volume 8.8 fL (7.4-10.4); Platelet Count 213 10^3/uL (150-450); Red Blood Count 3.29 10^6 /uL (3.70-4.87); Red Cell Distribution Width 14 % (10-15); White Blood Count 11.5 10^3/uL (3.5-10.8)
[2020-08-11 09:00] LABS: BUN/Creatinine Ratio 11.8 (8-20); Calcium 8.2 mg/dL (8.6-10.3); EGFR African American 87.3 (>60); EGFR Non-African American 72.2 (>60); Potassium 3.9 mmol/L (3.5-5.0)
[2020-08-11] MEDS: Nystatin SUSPENSION 100,000 UNITS/ML UDC SWISH SWAL SCH ×4 (09:22→20:46)
[2020-08-11] MEDS ORDERED: Heparin DRIP 25,000 UNITS BAG 25,000 UNITS/500 ML BAG IV SCH (10:00)
[2020-08-11] MEDS: Heparin 5000 UNITS/ML 1 mL VIAL IV SCH ×2 (11:16→19:28)
[2020-08-11] MEDS: Pantoprazole VIAL 40 MG VIAL IV SCH (20:45)
[2020-08-12 02:00] LABS: ABS Basophils 0.1 10^3/ul (0-0.2); ABS Eosinophils 0.5 10^3/ul (0-0.6); ABS Lymphocytes 2.1 10^3/ul (1.0-4.8); ABS Monocytes 0.8 10^3/ul (0-0.8); ABS Neutrophils 6.9 10^3/ul (1.5-7.7); Eosinophil % 4.5 %; Hematocrit 26 % (35-47); Hemoglobin 8.9 g/dL (12.0-16.0); Mean Corpuscular HGB Conc 35 g/dL (31-36); Mean Corpuscular Hemoglobin 32 pg (27-31); Mean Corpuscular Volume 91 fL (80-97); Mean Platelet Volume 8.8 fL (7.4-10.4); Platelet Count 196 10^3/uL (150-450); Red Blood Count 2.83 10^6 /uL (3.70-4.87); Red Cell Distribution Width 14 % (10-15); White Blood Count 10.4 10^3/uL (3.5-10.8)
[2020-08-12 02:09] LABS: Activated Partial Thrombo Time 75.1 seconds (26.0-38.0); INR 1.23 (0.82-1.09)
[2020-08-12 02:17] LABS: BUN/Creatinine Ratio 12.2 (8-20); Calcium 7.8 mg/dL (8.6-10.3); EGFR Non-African American 74.4 (>60); Potassium 3.5 mmol/L (3.5-5.0)
[2020-08-12] MEDS: SPIRIVA Respimat (tiotropium) 2.5 mcg/inh Inhaler INH SCH (07:11)
[2020-08-12] MEDS: Mometasone/Formoter 200/5 MDI INH SCH ×2 (07:11→19:31)
[2020-08-12] MEDS: Nystatin SUSPENSION 100,000 UNITS/ML UDC SWISH SWAL SCH ×4 (08:55→20:16)
[2020-08-12] MEDS: Pantoprazole VIAL 40 MG VIAL IV SCH ×2 (09:00→20:15)
[2020-08-12] MEDS ORDERED: Lidocaine 2.5%/Prilocain 2.5% 5 GM TUBE TOPICAL ONE (12:19)
[2020-08-12] MEDS: Heparin DRIP 25,000 UNITS BAG 25,000 UNITS/500 ML BAG IV SCH (14:51)
[2020-08-12] MEDS: Heparin 5000 UNITS/ML 1 mL VIAL IV PRN ×2 (14:52→22:23)
[2020-08-12] MEDS ORDERED: Docusate LIQ 100 MG/10 ML UDC PO PRN (15:50)
[2020-08-12] MEDS ORDERED: Warfarin DAILY REMINDER **NOTE FOLLOW UP SCH (17:00)
[2020-08-12] MEDS: Polyethylene Glycol 3350 17 GM PACKET PO SCH (17:05)
[2020-08-12 21:42] LABS: Hematocrit 28 % (35-47); Hemoglobin 9.3 g/dL (12.0-16.0)
[2020-08-13 05:57] LABS: ABS Basophils 0.1 10^3/ul (0-0.2); ABS Eosinophils 0.5 10^3/ul (0-0.6); ABS Lymphocytes 1.9 10^3/ul (1.0-4.8); ABS Monocytes 0.6 10^3/ul (0-0.8); ABS Neutrophils 4.6 10^3/ul (1.5-7.7); Eosinophil % 6.5 %; Hematocrit 26 % (35-47); Hemoglobin 8.7 g/dL (12.0-16.0); Lymphocyte % 25.2 %; Mean Corpuscular HGB Conc 34 g/dL (31-36); Mean Corpuscular Hemoglobin 31 pg (27-31); Mean Corpuscular Volume 92 fL (80-97); Mean Platelet Volume 8.9 fL (7.4-10.4); Platelet Count 199 10^3/uL (150-450); Red Blood Count 2.79 10^6 /uL (3.70-4.87); Red Cell Distribution Width 15 % (10-15); White Blood Count 7.7 10^3/uL (3.5-10.8)
[2020-08-13 06:09] LABS: INR 1.58 (0.82-1.09)
[2020-08-13 07:53] LABS: Activated Partial Thrombo Time 132.9 seconds (26.0-38.0)
[2020-08-13] MEDS: SPIRIVA Respimat (tiotropium) 2.5 mcg/inh Inhaler INH SCH (08:23)
[2020-08-13] MEDS: Mometasone/Formoter 200/5 MDI INH SCH ×2 (08:23→19:33)
[2020-08-13] MEDS: Pantoprazole VIAL 40 MG VIAL IV SCH ×2 (08:36→20:48)
[2020-08-13] MEDS: Polyethylene Glycol 3350 17 GM PACKET PO SCH (08:40)
[2020-08-13] MEDS: Nystatin SUSPENSION 100,000 UNITS/ML UDC SWISH SWAL SCH ×4 (08:41→20:48)
[2020-08-13] MEDS: Heparin DRIP 25,000 UNITS BAG 25,000 UNITS/500 ML BAG IV SCH (12:08)
[2020-08-13] MEDS ORDERED: Senna TAB 8.6 mg TAB PO PRN (15:23)
[2020-08-14 07:57] LABS: ABS Basophils 0.1 10^3/ul (0-0.2); ABS Eosinophils 0.5 10^3/ul (0-0.6); ABS Monocytes 0.7 10^3/ul (0-0.8); ABS Neutrophils 4.4 10^3/ul (1.5-7.7); Eosinophil % 6.8 %; Hematocrit 24 % (35-47); Hemoglobin 8.3 g/dL (12.0-16.0); Lymphocyte % 26.2 %; Mean Corpuscular HGB Conc 34 g/dL (31-36); Mean Corpuscular Hemoglobin 31 pg (27-31); Mean Corpuscular Volume 91 fL (80-97); Mean Platelet Volume 9.2 fL (7.4-10.4); Nucleated Red Blood Cells % 0.1; Platelet Count 208 10^3/uL (150-450); Red Blood Count 2.65 10^6 /uL (3.70-4.87); Red Cell Distribution Width 15 % (10-15); White Blood Count 7.6 10^3/uL (3.5-10.8)
[2020-08-14] MEDS: Mometasone/Formoter 200/5 MDI INH SCH ×2 (07:58→19:42)
[2020-08-14] MEDS: SPIRIVA Respimat (tiotropium) 2.5 mcg/inh Inhaler INH SCH (07:59)
[2020-08-14] MEDS: Nystatin SUSPENSION 100,000 UNITS/ML UDC SWISH SWAL SCH ×4 (08:27→20:37)
[2020-08-14] MEDS: Pantoprazole VIAL 40 MG VIAL IV SCH ×2 (08:27→20:35)
[2020-08-14] MEDS: Polyethylene Glycol 3350 17 GM PACKET PO SCH (08:27)
[2020-08-14] MEDS ORDERED: Glycerin ADULT 2.4 gm SUPP PR ONE (13:32)
[2020-08-14 23:08] LABS: Hematocrit 26 % (35-47); Hemoglobin 8.5 g/dL (12.0-16.0)
[2020-08-15 05:57] LABS: Hematocrit 25 % (35-47); Hemoglobin 8.4 g/dL (12.0-16.0); Mean Corpuscular HGB Conc 33 g/dL (31-36); Mean Corpuscular Hemoglobin 31 pg (27-31); Mean Corpuscular Volume 93 fL (80-97); Mean Platelet Volume 8.4 fL (7.4-10.4); Platelet Count 230 10^3/uL (150-450); Red Blood Count 2.73 10^6 /uL (3.70-4.87); Red Cell Distribution Width 15 % (10-15); White Blood Count 8.3 10^3/uL (3.5-10.8)
[2020-08-15] MEDS: SPIRIVA Respimat (tiotropium) 2.5 mcg/inh Inhaler INH SCH (07:46)
[2020-08-15] MEDS: Mometasone/Formoter 200/5 MDI INH SCH (07:49)
[2020-08-15] MEDS: Nystatin SUSPENSION 100,000 UNITS/ML UDC SWISH SWAL SCH ×2 (09:19→13:47)
[2020-08-15] MEDS: Polyethylene Glycol 3350 17 GM PACKET PO SCH (09:20)
[2020-08-15] MEDS: Pantoprazole VIAL 40 MG VIAL IV SCH (09:20)
[2020-08-15 11:09] VITALS: BP 147/43
== END 2020-08-15 15:38 | disposition home or self-care (01) | DRG 811 ==
LOC: ED 22:38 → MEDTELE 08-08 04:17
PROVIDERS: ADMIT Hospitalist; ATTEND Pediatrics

== ENCOUNTER 2020-10-16 11:24 | Inpatient (IN) ==
[2020-10-16] MEDS ORDERED: Ondansetron 4 mg VIAL 2 MG/ML 2 ml VIAL IV ONE (11:40)
[2020-10-16] MEDS ORDERED: NS 0.9% 1000 ml BAG 1,000 ML IV ONE (11:40)
[2020-10-16 12:49] LABS: ABS Lymphocytes 2.5 10^3/ul (1.0-4.8); ABS Monocytes 0.9 10^3/ul (0-0.8); ABS Neutrophils 21.4 10^3/ul (1.5-7.7); Hematocrit 28 % (35-47); Hemoglobin 9.1 g/dL (12.0-16.0); Lymphocyte % 10.1 %; Mean Corpuscular HGB Conc 32 g/dL (31-36); Mean Corpuscular Hemoglobin 27 pg (27-31); Mean Corpuscular Volume 83 fL (80-97); Mean Platelet Volume 8.3 fL (7.4-10.4); Platelet Count 316 10^3/uL (150-450); Red Blood Count 3.39 10^6 /uL (3.70-4.87); Red Cell Distribution Width 18 % (10-15); White Blood Count 24.9 10^3/uL (3.5-10.8)
[2020-10-16 12:54] LABS: Albumin 2.9 g/dL (3.2-5.2); Calcium 8.7 mg/dL (8.6-10.3); Potassium 4.8 mmol/L (3.5-5.0); Total Bilirubin 0.3 mg/dL (0.2-1.0)
[2020-10-16 13:01] LABS: Albumin/Globulin Ratio 0.9 (1-3); EGFR African American 114.7 (>60); EGFR Non-African American 94.8 (>60); Globulin 3.1 g/dL (2-4)
[2020-10-16] MEDS ORDERED: Iodixanol (CONTRAST) 320 MG/ML 100 ML SDV IV ONE (14:36)
[2020-10-16] MEDS ORDERED: Magnesium Hydroxide LIQ 30 ML UDC PO PRN (16:56)
[2020-10-16] MEDS ORDERED: Albuterol HFA INHALER 8 gm MDI INH PRN (17:00)
[2020-10-16] MEDS ORDERED: NS 0.9% 1000 ml BAG 1,000 ML IV SCH (17:00)
[2020-10-16] MEDS ORDERED: Dextrose 50% Syringe 50 ml 25 GM/50 ML SYRINGE IV PUSH PRN (17:05)
[2020-10-16] MEDS: Mometasone/Formoter 200/5 MDI INH SCH (20:05)
[2020-10-16 20:47] LABS: TSH Ultra Thyroid Stim Horm 0.66 mcIU/mL (0.34-5.60)
[2020-10-17 06:28] LABS: ABS Eosinophils 0.1 10^3/ul (0-0.6); ABS Lymphocytes 2.3 10^3/ul (1.0-4.8); ABS Monocytes 0.7 10^3/ul (0-0.8); ABS Neutrophils 10.8 10^3/ul (1.5-7.7); Eosinophil % 0.4 %; Hematocrit 26 % (35-47); Hemoglobin 8.3 g/dL (12.0-16.0); Lymphocyte % 16.4 %; Mean Corpuscular HGB Conc 33 g/dL (31-36); Mean Corpuscular Hemoglobin 27 pg (27-31); Mean Corpuscular Volume 84 fL (80-97); Mean Platelet Volume 8.2 fL (7.4-10.4); Platelet Count 266 10^3/uL (150-450); Red Blood Count 3.05 10^6 /uL (3.70-4.87); Red Cell Distribution Width 18 % (10-15); White Blood Count 13.9 10^3/uL (3.5-10.8)
[2020-10-17 06:47] LABS: Calcium 7.9 mg/dL (8.6-10.3); Potassium 4.4 mmol/L (3.5-5.0)
[2020-10-17 06:51] LABS: INR 1.7 (0.82-1.09)
[2020-10-17 06:53] LABS: EGFR African American 124.2 (>60); EGFR Non-African American 102.6 (>60)
[2020-10-17] MEDS: Cholecalciferol (VIT D3) 1,000 unit TAB PO SCH (07:34)
[2020-10-17] MEDS: Mometasone/Formoter 200/5 MDI INH SCH ×2 (08:41→20:30)
[2020-10-17 19:24] LABS: C Reactive Protein 157.77 mg/L (<8.01)
[2020-10-17 20:53] LABS: C Reactive Protein 113.21 mg/L (<8.01)
[2020-10-18] MEDS: SPIRIVA Respimat (tiotropium) 2.5 mcg/inh Inhaler INH SCH (07:47)
[2020-10-18] MEDS: Mometasone/Formoter 200/5 MDI INH SCH ×2 (07:47→19:52)
[2020-10-18] MEDS: Potassium Chlor 20 meq TAB.ER PO SCH (09:08)
[2020-10-18] MEDS: Cholecalciferol (VIT D3) 1,000 unit TAB PO SCH (09:08)
[2020-10-18 10:42] LABS: ABS Lymphocytes 2.3 10^3/ul (1.0-4.8); ABS Monocytes 0.6 10^3/ul (0-0.8); ABS Neutrophils 11.8 10^3/ul (1.5-7.7); Eosinophil % 0.2 %; Hematocrit 28 % (35-47); Hemoglobin 8.8 g/dL (12.0-16.0); Lymphocyte % 15.6 %; Mean Corpuscular HGB Conc 32 g/dL (31-36); Mean Corpuscular Hemoglobin 27 pg (27-31); Mean Corpuscular Volume 84 fL (80-97); Mean Platelet Volume 8.4 fL (7.4-10.4); Platelet Count 296 10^3/uL (150-450); Red Cell Distribution Width 18 % (10-15); White Blood Count 14.8 10^3/uL (3.5-10.8)
[2020-10-18 11:00] LABS: Calcium 8.5 mg/dL (8.6-10.3); EGFR African American 119.3 (>60); EGFR Non-African American 98.6 (>60); Potassium 3.4 mmol/L (3.5-5.0)
[2020-10-18] MEDS ORDERED: Potassium Chlor 20 meq TAB.ER PO ONE (11:39)
[2020-10-18] MEDS ORDERED: PEG 3000 GI LAVAGE 1 GALLON PO ONE (15:19)
[2020-10-18] MEDS: NS 0.9% w/ 20 Meq KCL 1000 ml 1,000 ML IV SCH (16:01)
[2020-10-18 16:03] LABS: ABS Lymphocytes 2.7 10^3/ul (1.0-4.8); ABS Monocytes 0.9 10^3/ul (0-0.8); ABS Neutrophils 15.9 10^3/ul (1.5-7.7); Eosinophil % 0.2 %; Hematocrit 30 % (35-47); Hemoglobin 9.4 g/dL (12.0-16.0); Lymphocyte % 13.7 %; Mean Corpuscular HGB Conc 32 g/dL (31-36); Mean Corpuscular Hemoglobin 27 pg (27-31); Mean Corpuscular Volume 84 fL (80-97); Mean Platelet Volume 8.7 fL (7.4-10.4); Nucleated Red Blood Cells % 0.1; Platelet Count 265 10^3/uL (150-450); Red Blood Count 3.54 10^6 /uL (3.70-4.87); Red Cell Distribution Width 19 % (10-15); White Blood Count 19.6 10^3/uL (3.5-10.8)
[2020-10-18] MEDS: Heparin 5000 UNITS/ML 1 mL VIAL SUBCUT SCH (21:30)
[2020-10-19] MEDS: Heparin 5000 UNITS/ML 1 mL VIAL SUBCUT SCH ×3 (05:23→23:26)
[2020-10-19 06:04] LABS: ABS Basophils 0.1 10^3/ul (0-0.2); ABS Lymphocytes 2.6 10^3/ul (1.0-4.8); ABS Monocytes 0.6 10^3/ul (0-0.8); ABS Neutrophils 11.8 10^3/ul (1.5-7.7); Eosinophil % 0.3 %; Hematocrit 24 % (35-47); Hemoglobin 7.9 g/dL (12.0-16.0); Lymphocyte % 17.1 %; Mean Corpuscular HGB Conc 33 g/dL (31-36); Mean Corpuscular Hemoglobin 27 pg (27-31); Mean Corpuscular Volume 82 fL (80-97); Mean Platelet Volume 8.7 fL (7.4-10.4); Platelet Count 249 10^3/uL (150-450); Red Blood Count 2.96 10^6 /uL (3.70-4.87); Red Cell Distribution Width 18 % (10-15); White Blood Count 15.2 10^3/uL (3.5-10.8)
[2020-10-19 06:16] LABS: C Reactive Protein 43.27 mg/L (<8.01); EGFR Non-African American 147.1 (>60); Potassium 3.4 mmol/L (3.5-5.0)
[2020-10-19] MEDS: Mometasone/Formoter 200/5 MDI INH SCH ×3 (07:59→20:16)
[2020-10-19] MEDS: SPIRIVA Respimat (tiotropium) 2.5 mcg/inh Inhaler INH SCH (07:59)
[2020-10-19] MEDS ORDERED: Midazolam 10 mg/10 ml VIAL 1 mg/ml 10 ml VIAL (10 mg) ONE (10:05)
[2020-10-19] MEDS ORDERED: fentaNYL 100 mcg/2 ml 50 MCG/ML VIAL ONE (10:05)
[2020-10-19] MEDS: Cholecalciferol (VIT D3) 1,000 unit TAB PO SCH (13:12)
[2020-10-19] MEDS: NS 0.9% w/ 20 Meq KCL 1000 ml 1,000 ML IV SCH (13:13)
[2020-10-19] MEDS: Potassium Chlor 20 meq TAB.ER PO SCH (13:13)
[2020-10-19] MEDS: methylPREDNISolone 125 mg 2 ML VIAL IV SCH (14:57)
[2020-10-20] MEDS: NS 0.9% w/ 20 Meq KCL 1000 ml 1,000 ML IV SCH (01:27)
[2020-10-20 05:48] LABS: ABS Lymphocytes 2.5 10^3/ul (1.0-4.8); ABS Monocytes 0.7 10^3/ul (0-0.8); ABS Neutrophils 13.9 10^3/ul (1.5-7.7); Hematocrit 23 % (35-47); Hemoglobin 7.8 g/dL (12.0-16.0); Lymphocyte % 14.6 %; Mean Corpuscular HGB Conc 33 g/dL (31-36); Mean Corpuscular Hemoglobin 27 pg (27-31); Mean Corpuscular Volume 82 fL (80-97); Mean Platelet Volume 7.9 fL (7.4-10.4); Platelet Count 235 10^3/uL (150-450); Red Blood Count 2.85 10^6 /uL (3.70-4.87); Red Cell Distribution Width 18 % (10-15)
[2020-10-20 06:06] LABS: EGFR Non-African American 125.6 (>60); Magnesium 1.4 mg/dL (1.9-2.7); Potassium 3.8 mmol/L (3.5-5.0)
[2020-10-20] MEDS: Heparin 5000 UNITS/ML 1 mL VIAL SUBCUT SCH (07:37)
[2020-10-20] MEDS ORDERED: Magnesium Sulfate 2 gm BAG 2 GM/50 ML BAG IVPB ONE ×2 (07:52→09:30)
[2020-10-20] MEDS: Mometasone/Formoter 200/5 MDI INH SCH ×2 (09:19→21:19)
[2020-10-20] MEDS: SPIRIVA Respimat (tiotropium) 2.5 mcg/inh Inhaler INH SCH (09:20)
[2020-10-20] MEDS: methylPREDNISolone 125 mg 2 ML VIAL IV SCH (09:45)
[2020-10-20] MEDS: Cholecalciferol (VIT D3) 1,000 unit TAB PO SCH (09:46)
[2020-10-20] MEDS: Potassium Chlor 20 meq TAB.ER PO SCH (09:46)
[2020-10-20 14:48] LABS: Hepatitis B Surface Antigen Nonreactive (Nonreactive)
[2020-10-20] MEDS ORDERED: Ondansetron 4 mg VIAL 2 MG/ML 2 ml VIAL IV PRN (19:50)
[2020-10-21 07:22] LABS: Hematocrit 24 % (35-47); Hemoglobin 7.5 g/dL (12.0-16.0); Mean Corpuscular HGB Conc 32 g/dL (31-36); Mean Corpuscular Hemoglobin 27 pg (27-31); Mean Corpuscular Volume 83 fL (80-97); Mean Platelet Volume 8.2 fL (7.4-10.4); Platelet Count 249 10^3/uL (150-450); Red Blood Count 2.83 10^6 /uL (3.70-4.87); Red Cell Distribution Width 18 % (10-15); White Blood Count 15.1 10^3/uL (3.5-10.8)
[2020-10-21 07:35] LABS: EGFR African American 126.8 (>60); EGFR Non-African American 104.8 (>60); Potassium 3.6 mmol/L (3.5-5.0)
[2020-10-21] MEDS: methylPREDNISolone 125 mg 2 ML VIAL IV SCH (08:34)
[2020-10-21] MEDS: Potassium Chlor 20 meq TAB.ER PO SCH (08:34)
[2020-10-21] MEDS: Cholecalciferol (VIT D3) 1,000 unit TAB PO SCH (08:34)
[2020-10-21] MEDS: SPIRIVA Respimat (tiotropium) 2.5 mcg/inh Inhaler INH SCH (08:45)
[2020-10-21] MEDS: Mometasone/Formoter 200/5 MDI INH SCH ×2 (08:45→19:15)
[2020-10-21 23:27] LABS: Calprotectin 890 mcg/g
[2020-10-22 07:37] LABS: ABS Lymphocytes 4.1 10^3/ul (1.0-4.8); ABS Monocytes 0.7 10^3/ul (0-0.8); ABS Neutrophils 7.5 10^3/ul (1.5-7.7); Eosinophil % 0.4 %; Hematocrit 27 % (35-47); Hemoglobin 8.8 g/dL (12.0-16.0); Lymphocyte % 33.3 %; Mean Corpuscular HGB Conc 33 g/dL (31-36); Mean Corpuscular Hemoglobin 27 pg (27-31); Mean Corpuscular Volume 82 fL (80-97); Mean Platelet Volume 8.2 fL (7.4-10.4); Platelet Count 239 10^3/uL (150-450); Red Blood Count 3.25 10^6 /uL (3.70-4.87); Red Cell Distribution Width 18 % (10-15); White Blood Count 12.4 10^3/uL (3.5-10.8)
[2020-10-22 07:53] LABS: Calcium 8.5 mg/dL (8.6-10.3); EGFR African American 114.7 (>60); EGFR Non-African American 94.8 (>60); Potassium 3.9 mmol/L (3.5-5.0)
[2020-10-22] MEDS: SPIRIVA Respimat (tiotropium) 2.5 mcg/inh Inhaler INH SCH (08:32)
[2020-10-22] MEDS: Mometasone/Formoter 200/5 MDI INH SCH ×2 (08:32→19:47)
[2020-10-22 08:47] LABS: C Reactive Protein 10.51 mg/L (<8.01)
[2020-10-22] MEDS: methylPREDNISolone 125 mg 2 ML VIAL IV SCH (08:51)
[2020-10-22] MEDS: Cholecalciferol (VIT D3) 1,000 unit TAB PO SCH (08:51)
[2020-10-22] MEDS: Potassium Chlor 20 meq TAB.ER PO SCH (08:51)
[2020-10-23 07:14] LABS: ABS Basophils 0.1 10^3/ul (0-0.2); ABS Eosinophils 0.1 10^3/ul (0-0.6); ABS Lymphocytes 3.8 10^3/ul (1.0-4.8); ABS Monocytes 0.8 10^3/ul (0-0.8); ABS Neutrophils 5.8 10^3/ul (1.5-7.7); Eosinophil % 0.5 %; Hematocrit 27 % (35-47); Hemoglobin 9.1 g/dL (12.0-16.0); Lymphocyte % 36.2 %; Mean Corpuscular HGB Conc 34 g/dL (31-36); Mean Corpuscular Hemoglobin 28 pg (27-31); Mean Corpuscular Volume 83 fL (80-97); Mean Platelet Volume 8.7 fL (7.4-10.4); Platelet Count 244 10^3/uL (150-450); Red Blood Count 3.26 10^6 /uL (3.70-4.87); Red Cell Distribution Width 18 % (10-15); White Blood Count 10.5 10^3/uL (3.5-10.8)
[2020-10-23] MEDS: SPIRIVA Respimat (tiotropium) 2.5 mcg/inh Inhaler INH SCH (07:52)
[2020-10-23] MEDS: Mometasone/Formoter 200/5 MDI INH SCH (07:53)
[2020-10-23] MEDS: Potassium Chlor 20 meq TAB.ER PO SCH (08:20)
[2020-10-23] MEDS: Cholecalciferol (VIT D3) 1,000 unit TAB PO SCH (08:20)
[2020-10-23] MEDS: methylPREDNISolone 125 mg 2 ML VIAL IV SCH (08:21)
[2020-10-23 11:49] VITALS: BP 135/54
[2020-10-23 15:09] LABS: QuantiferonTb Gold Plus Result Negative (Negative)
[2020-10-23 15:30] LABS: HLA B27 Positive
[2020-10-23 21:30] LABS: Mitochondria M2 Antibody <0.1 U
[2020-10-23 22:15] LABS: CMV DNA DETECT/QT, P <35 IU/mL (Undetected)
[2020-10-24 11:20] LABS: Cytomegalovirus IgG Antibody Positive (Negative)
[2020-10-24 16:16] LABS: Cyclic Citrullinated Peptide <15.6 U
== END 2020-10-23 14:40 | disposition home or self-care (01) | DRG 392 ==
LOC: ED 11:24 → MED 16:56
PROVIDERS: ADMIT Hospitalist; ATTEND Internal Medicine

== ENCOUNTER 2020-10-29 06:48 | Inpatient (IN) ==
[2020-10-29] MEDS ORDERED: NS 0.9% 1000 ml BAG 1,000 ML IV ONE (07:02)
[2020-10-29 09:45] LABS: ABS Basophils 0.1 10^3/ul (0-0.2); ABS Lymphocytes 2.4 10^3/ul (1.0-4.8); ABS Neutrophils 19.6 10^3/ul (1.5-7.7); Eosinophil % 0.1 %; Hematocrit 33 % (35-47); Hemoglobin 10.7 g/dL (12.0-16.0); Lymphocyte % 10.6 %; Mean Corpuscular HGB Conc 32 g/dL (31-36); Mean Corpuscular Hemoglobin 27 pg (27-31); Mean Corpuscular Volume 85 fL (80-97); Mean Platelet Volume 8.3 fL (7.4-10.4); Platelet Count 218 10^3/uL (150-450); Red Blood Count 3.91 10^6 /uL (3.70-4.87); Red Cell Distribution Width 18 % (10-15); White Blood Count 23.2 10^3/uL (3.5-10.8)
[2020-10-29 10:03] LABS: ALT 16 U/L (7-52); AST 16 U/L (13-39); Albumin 3.3 g/dL (3.2-5.2); Albumin/Globulin Ratio 1.2 (1-3); Alkaline Phosphatase 73 U/L (35-149); Anion Gap 8 mmol/L (2-11); Blood Urea Nitrogen 18 mg/dL (6-24); CO2 Carbon Dioxide 24 mmol/L (22-32); Calcium 9.2 mg/dL (8.6-10.3); Chloride 98 mmol/L (101-111); EGFR African American 83.5 (>60); Globulin 2.8 g/dL (2-4); Glucose 152 mg/dL (70-100); Magnesium 1.8 mg/dL (1.9-2.7); Potassium 3.9 mmol/L (3.5-5.0); Sodium 130 mmol/L (135-145); Total Protein 6.1 g/dL (6.4-8.9)
[2020-10-29 10:10] LABS: Troponin I 0.03 ng/mL (<0.03)
[2020-10-29] MEDS ORDERED: Magnesium Sulfate 2 gm BAG 2 GM/50 ML BAG IVPB ONE (10:31)
[2020-10-29 10:45] LABS: TSH Ultra Thyroid Stim Horm 0.98 mcIU/mL (0.34-5.60)
[2020-10-29] MEDS ORDERED: Ondansetron 4 mg VIAL 2 MG/ML 2 ml VIAL IV PRN (13:38)
[2020-10-29] MEDS ORDERED: Albuterol HFA INHALER 8 gm MDI INH PRN (13:44)
[2020-10-29] MEDS ORDERED: Dextrose 50% Syringe 50 ml 25 GM/50 ML SYRINGE IV PUSH PRN (13:46)
[2020-10-29 14:54] LABS: Troponin I 0.03 ng/mL (<0.03)
[2020-10-29] MEDS: NS 0.9% 1000 ml BAG 1,000 ML IV SCH (15:54)
[2020-10-29 16:12] LABS: Hematocrit 33 % (35-47); Hemoglobin 10.7 g/dL (12.0-16.0)
[2020-10-29] MEDS: Mometasone/Formoter 200/5 MDI INH SCH (21:04)
[2020-10-30] MEDS: NS 0.9% 1000 ml BAG 1,000 ML IV SCH (03:35)
[2020-10-30 07:11] LABS: ABS Eosinophils 0.1 10^3/ul (0-0.6); ABS Lymphocytes 2.3 10^3/ul (1.0-4.8); ABS Monocytes 0.6 10^3/ul (0-0.8); Eosinophil % 0.5 %; Hematocrit 31 % (35-47); Hemoglobin 10.2 g/dL (12.0-16.0); Lymphocyte % 13.7 %; Mean Corpuscular HGB Conc 33 g/dL (31-36); Mean Corpuscular Hemoglobin 28 pg (27-31); Mean Corpuscular Volume 85 fL (80-97); Mean Platelet Volume 8.8 fL (7.4-10.4); Platelet Count 183 10^3/uL (150-450); Red Blood Count 3.63 10^6 /uL (3.70-4.87); Red Cell Distribution Width 19 % (10-15); White Blood Count 17.1 10^3/uL (3.5-10.8)
[2020-10-30 07:31] LABS: Albumin/Globulin Ratio 1.2 (1-3); Calcium 8.3 mg/dL (8.6-10.3); EGFR Non-African American 79.3 (>60); Globulin 2.6 g/dL (2-4); Magnesium 1.9 mg/dL (1.9-2.7); Potassium 3.5 mmol/L (3.5-5.0); Total Bilirubin 0.7 mg/dL (0.2-1.0); Total Protein 5.6 g/dL (6.4-8.9)
[2020-10-30] MEDS: Mometasone/Formoter 200/5 MDI INH SCH (08:38)
[2020-10-30] MEDS ORDERED: Cholecalciferol (VIT D3) 1,000 unit TAB PO SCH (09:00)
[2020-10-30] MEDS ORDERED: SPIRIVA Respimat (tiotropium) 2.5 mcg/inh Inhaler INH SCH (09:00)
[2020-10-30] MEDS ORDERED: Vitamin THERAPEUTIC TAB PO SCH (09:00)
[2020-10-30] MEDS ORDERED: Potassium Chlor 20 meq TAB.ER PO SCH (09:00)
[2020-10-30 12:45] LABS: HIV 4th Generation Nonreactive (Nonreactive)
[2020-10-30 15:43] VITALS: BP 161/52
[2020-10-31 18:07] LABS: Immunoglobulin A 226 mg/dL (61 - 356); Immunoglobulin G 654 mg/dL (767 - 1590); Immunoglobulin M 99 mg/dL (37 - 286)
[2020-10-31 20:52] LABS: CMV DNA DETECT/QT, P <35 IU/mL (Undetected)
[2020-11-01 10:54] LABS: Cytomegalovirus IgG Antibody Positive (Negative)
== END 2020-10-30 16:15 | disposition home or self-care (01) | DRG 392 ==
LOC: ED 06:48 → MED 13:38
PROVIDERS: ADMIT Internal Medicine; ATTEND Internal Medicine

== ENCOUNTER 2020-11-07 04:56 | Inpatient (IN) ==
[2020-11-07] MEDS ORDERED: NS 0.9% 1000 ml BAG 1,000 ML IV ONE (05:22)
[2020-11-07 06:28] LABS: ABS Lymphocytes 3.8 10^3/ul (1.0-4.8); ABS Monocytes 0.7 10^3/ul (0-0.8); ABS Neutrophils 14.3 10^3/ul (1.5-7.7); Eosinophil % 0.1 %; Hematocrit 34 % (35-47); Hemoglobin 11.1 g/dL (12.0-16.0); Lymphocyte % 20.3 %; Mean Corpuscular HGB Conc 32 g/dL (31-36); Mean Corpuscular Hemoglobin 27 pg (27-31); Mean Corpuscular Volume 84 fL (80-97); Mean Platelet Volume 8.7 fL (7.4-10.4); Platelet Count 202 10^3/uL (150-450); Red Blood Count 4.05 10^6 /uL (3.70-4.87); Red Cell Distribution Width 21 % (10-15); White Blood Count 18.9 10^3/uL (3.5-10.8)
[2020-11-07 06:48] LABS: ALT 14 U/L (7-52); Albumin 3.5 g/dL (3.2-5.2); Albumin/Globulin Ratio 1.1 (1-3); Alkaline Phosphatase 90 U/L (35-149); Blood Urea Nitrogen 14 mg/dL (6-24); CO2 Carbon Dioxide 19 mmol/L (22-32); Calcium 9.3 mg/dL (8.6-10.3); Chloride 99 mmol/L (101-111); EGFR Non-African American 66.1 (>60); Globulin 3.1 g/dL (2-4); Glucose 155 mg/dL (70-100); Sodium 130 mmol/L (135-145); Total Protein 6.6 g/dL (6.4-8.9)
[2020-11-07 06:56] LABS: Troponin I 0.04 ng/mL (<0.03)
[2020-11-07 07:01] LABS: Anion Gap 12 mmol/L (2-11)
[2020-11-07 08:48] LABS: Magnesium 1.5 mg/dL (1.9-2.7); Potassium Redraw 4.2 mmol/L (3.5-5.0)
[2020-11-07] MEDS ORDERED: Magnesium Sulfate IV 3 GM in NS 0.9% 100 ml BAG 100 ML IVPB ONE (10:12)
[2020-11-07] MEDS ORDERED: Albuterol HFA INHALER 8 gm MDI INH PRN (10:18)
[2020-11-07] MEDS ORDERED: NS 0.9% 1000 ml BAG 1,000 ML IV SCH (10:30)
[2020-11-07] MEDS ORDERED: Magnesium Sulfate IV 0.5 GM/ML 2 ml VIAL (1 gm) ONE (10:50)
[2020-11-07 11:10] LABS: C Reactive Protein 16.66 mg/L (<8.01)
[2020-11-07] MEDS: methylPREDNISolone SOD 40 mg/ml 1 ml VIAL IV SCH ×2 (15:18→20:00)
[2020-11-07 16:28] LABS: Troponin I 0.03 ng/mL (<0.03)
[2020-11-07] MEDS ORDERED: Dextrose 50% Syringe 50 ml 25 GM/50 ML SYRINGE IV PUSH PRN (18:51)
[2020-11-07] MEDS ORDERED: Multivitamins/Minera Areds(NF) CAP PO SCH (21:00)
[2020-11-08 07:01] LABS: INR 1.21 (0.86-1.15)
[2020-11-08 07:07] LABS: ABS Lymphocytes 1.8 10^3/ul (1.0-4.8); ABS Monocytes 0.4 10^3/ul (0-0.8); ABS Neutrophils 12.3 10^3/ul (1.5-7.7); Hematocrit 31 % (35-47); Hemoglobin 9.6 g/dL (12.0-16.0); Lymphocyte % 12.6 %; Mean Corpuscular HGB Conc 32 g/dL (31-36); Mean Corpuscular Hemoglobin 27 pg (27-31); Mean Corpuscular Volume 87 fL (80-97); Mean Platelet Volume 8.4 fL (7.4-10.4); Platelet Count 165 10^3/uL (150-450); Red Blood Count 3.52 10^6 /uL (3.70-4.87); Red Cell Distribution Width 21 % (10-15); White Blood Count 14.6 10^3/uL (3.5-10.8)
[2020-11-08 07:12] LABS: C Reactive Protein 31.08 mg/L (<8.01); Calcium 8.1 mg/dL (8.6-10.3); EGFR African American 121.7 (>60); EGFR Non-African American 100.6 (>60); Potassium 4.1 mmol/L (3.5-5.0)
[2020-11-08] MEDS: SPIRIVA Respimat (tiotropium) 2.5 mcg/inh Inhaler INH SCH (08:04)
[2020-11-08] MEDS: methylPREDNISolone SOD 40 mg/ml 1 ml VIAL IV SCH ×3 (08:43→19:55)
[2020-11-08] MEDS: Potassium Chlor 20 meq TAB.ER PO SCH (08:44)
[2020-11-08] MEDS: Vitamin THERAPEUTIC TAB PO SCH (08:45)
[2020-11-08] MEDS: Cholecalciferol (VIT D3) 1,000 unit TAB PO SCH (08:45)
[2020-11-09 06:43] LABS: INR 1.18 (0.86-1.15)
[2020-11-09 07:20] LABS: ABS Monocytes 0.4 10^3/ul (0-0.8); ABS Neutrophils 16.3 10^3/ul (1.5-7.7); Hematocrit 30 % (35-47); Hemoglobin 9.7 g/dL (12.0-16.0); Lymphocyte % 10.8 %; Mean Corpuscular HGB Conc 32 g/dL (31-36); Mean Corpuscular Hemoglobin 27 pg (27-31); Mean Corpuscular Volume 84 fL (80-97); Mean Platelet Volume 8.7 fL (7.4-10.4); Platelet Count 181 10^3/uL (150-450); Red Blood Count 3.55 10^6 /uL (3.70-4.87); Red Cell Distribution Width 21 % (10-15); White Blood Count 18.7 10^3/uL (3.5-10.8)
[2020-11-09 07:25] LABS: Calcium 8.5 mg/dL (8.6-10.3); Potassium 4.6 mmol/L (3.5-5.0)
[2020-11-09 07:30] LABS: EGFR African American 108.4 (>60); EGFR Non-African American 89.6 (>60)
[2020-11-09] MEDS: methylPREDNISolone SOD 40 mg/ml 1 ml VIAL IV SCH ×2 (08:46→13:17)
[2020-11-09] MEDS: Vitamin THERAPEUTIC TAB PO SCH (08:46)
[2020-11-09] MEDS: Cholecalciferol (VIT D3) 1,000 unit TAB PO SCH (08:46)
[2020-11-09] MEDS: Potassium Chlor 20 meq TAB.ER PO SCH (08:46)
[2020-11-09] MEDS: SPIRIVA Respimat (tiotropium) 2.5 mcg/inh Inhaler INH SCH (09:07)
[2020-11-09 11:44] VITALS: BP 152/48
[2020-11-10 18:57] LABS: CMV DNA DETECT/QT, P Undetected IU/mL (Undetected)
== END 2020-11-09 14:45 | disposition home or self-care (01) | DRG 387 ==
LOC: MED 04:56 → ED 04:56 → MED 11-09 01:53
PROVIDERS: ADMIT Hospitalist; ATTEND Hospitalist

== ENCOUNTER 2020-11-10 10:05 | Inpatient (IN) ==
[2020-11-10 12:44] LABS: ABS Lymphocytes 1.3 10^3/ul (1.0-4.8); ABS Monocytes 0.5 10^3/ul (0-0.8); ABS Neutrophils 22.2 10^3/ul (1.5-7.7); Eosinophil % 0.1 %; Hematocrit 32 % (35-47); Hemoglobin 10.1 g/dL (12.0-16.0); Lymphocyte % 5.5 %; Mean Corpuscular HGB Conc 32 g/dL (31-36); Mean Corpuscular Hemoglobin 27 pg (27-31); Mean Corpuscular Volume 86 fL (80-97); Mean Platelet Volume 8.6 fL (7.4-10.4); Platelet Count 193 10^3/uL (150-450); Red Cell Distribution Width 21 % (10-15)
[2020-11-10 12:49] LABS: Albumin 3.3 g/dL (3.2-5.2); CO2 Carbon Dioxide 23 mmol/L (22-32); Calcium 9.2 mg/dL (8.6-10.3); Chloride 99 mmol/L (101-111); Sodium 132 mmol/L (135-145)
[2020-11-10 12:55] LABS: ALT 16 U/L (7-52); Albumin/Globulin Ratio 1.2 (1-3); Alkaline Phosphatase 92 U/L (35-149); Blood Urea Nitrogen 20 mg/dL (6-24); C Reactive Protein 7.93 mg/L (<8.01); EGFR African American 76.7 (>60); EGFR Non-African American 63.4 (>60); Globulin 2.8 g/dL (2-4); Glucose 229 mg/dL (70-100); Total Protein 6.1 g/dL (6.4-8.9)
[2020-11-10 13:22] LABS: Anion Gap 10 mmol/L (2-11)
[2020-11-10] MEDS ORDERED: Albuterol HFA INHALER 8 gm MDI INH PRN (13:54)
[2020-11-10] MEDS ORDERED: Dextrose 50% Syringe 50 ml 25 GM/50 ML SYRINGE IV PUSH PRN (13:54)
[2020-11-10] MEDS ORDERED: NON FORMULARY MED (Acetaminophen 650 mg Tablet Extended Release) PO PRN (13:54)
[2020-11-10 16:13] LABS: Magnesium 1.6 mg/dL (1.9-2.7)
[2020-11-10] MEDS: NS 0.9% 1000 ml BAG 1,000 ML IV SCH ×2 (16:16→18:55)
[2020-11-10] MEDS ORDERED: Magnesium Sulfate 2 gm BAG 2 GM/50 ML BAG IVPB ONE (16:26)
[2020-11-10] MEDS: Enoxaparin 40 MG/0.4 ML SYR SUBCUT SCH (16:48)
[2020-11-10] MEDS ORDERED: hydrALAZINE 20 mg/ml 1 ML Vial IV IV SLOW PU PRN (17:10)
[2020-11-10] MEDS ORDERED: NS 0.9% 500 ml BAG 500 ML IV ONE (18:26)
[2020-11-10] MEDS ORDERED: Metoprolol Tartrate 5 mg VIAL 5 ml VIAL (1 mg/ml) IV ONE ×3 (18:28→21:53)
[2020-11-10] MEDS ORDERED: Hydrocortisone INJ 100 MG/2ML 2 ML VIAL IV ONE (18:30)
[2020-11-10] MEDS ORDERED: Prochlorperazine 5 mg/ml 2 ml VIAL (10 mg) IV PRN (18:58)
[2020-11-10] MEDS: Mometasone/Formoter 200/5 MDI INH SCH (19:43)
[2020-11-10] MEDS ORDERED: NS 0.9% 1000 ml BAG 1,000 ML IV SCH ×2 (20:21→23:27)
[2020-11-10 23:42] LABS: Calcium 8.5 mg/dL (8.6-10.3); Magnesium 2.3 mg/dL (1.9-2.7)
[2020-11-10 23:47] LABS: EGFR African American 88.7 (>60); EGFR Non-African American 73.3 (>60); Potassium 4.2 mmol/L (3.5-5.0)
[2020-11-11 00:12] LABS: Troponin I 0.06 ng/mL (<0.03)
[2020-11-11] MEDS ORDERED: Metoprolol Tartrate 5 mg VIAL 5 ml VIAL (1 mg/ml) IV PRN (00:26)
[2020-11-11] MEDS: Calcium Carb (TUMS) 500 mg CHEW TAB PO PRN ×2 (00:44→20:44)
[2020-11-11] MEDS ORDERED: Metoprolol Tartrate 5 mg VIAL 5 ml VIAL (1 mg/ml) IV ONE (00:52)
[2020-11-11 00:57] LABS: Troponin I 0.03 ng/mL (<0.03)
[2020-11-11] MEDS ORDERED: Diltiazem IV push/loading dose 5 MG/ML 5 ML vial (25 mg) IV SLOW PU ONE (04:16)
[2020-11-11] MEDS ORDERED: Diltiazem IV push/loading dose 5 MG/ML 5 ML vial (25 mg) IV SLOW PU PRN (04:50)
[2020-11-11] MEDS: Mometasone/Formoter 200/5 MDI INH SCH ×2 (07:28→19:34)
[2020-11-11] MEDS: SPIRIVA Respimat (tiotropium) 2.5 mcg/inh Inhaler INH SCH (07:29)
[2020-11-11] MEDS ORDERED: NS 0.9% 1000 ml BAG 1,000 ML IV SCH (07:35)
[2020-11-11 08:04] LABS: ABS Lymphocytes 1.2 10^3/ul (1.0-4.8); ABS Monocytes 0.4 10^3/ul (0-0.8); ABS Neutrophils 19.2 10^3/ul (1.5-7.7); Hematocrit 32 % (35-47); Hemoglobin 10.1 g/dL (12.0-16.0); Mean Corpuscular HGB Conc 32 g/dL (31-36); Mean Corpuscular Hemoglobin 27 pg (27-31); Mean Corpuscular Volume 85 fL (80-97); Mean Platelet Volume 8.3 fL (7.4-10.4); Platelet Count 185 10^3/uL (150-450); Red Blood Count 3.76 10^6 /uL (3.70-4.87); Red Cell Distribution Width 21 % (10-15); White Blood Count 20.8 10^3/uL (3.5-10.8)
[2020-11-11 08:19] LABS: Anion Gap 9 mmol/L (2-11); CO2 Carbon Dioxide 21 mmol/L (22-32); Calcium 8.6 mg/dL (8.6-10.3); Chloride 103 mmol/L (101-111); Potassium 3.6 mmol/L (3.5-5.0); Sodium 133 mmol/L (135-145)
[2020-11-11 08:25] LABS: Blood Urea Nitrogen 23 mg/dL (6-24); EGFR African American 114.7 (>60); EGFR Non-African American 94.8 (>60); Glucose 172 mg/dL (70-100)
[2020-11-11] MEDS: Cholecalciferol (VIT D3) 1,000 unit TAB PO SCH (08:38)
[2020-11-11] MEDS: Potassium Chloride LIQUID 20 MEQ/15 ML LIQUID PO SCH (08:41)
[2020-11-11 08:57] LABS: Troponin I 0.56 ng/mL (<0.03)
[2020-11-11] MEDS ORDERED: inFLIXimab-DYYB (Inflectra) 100 MG/10 ML VIAL IVPB ONE (09:53)
[2020-11-11] MEDS ORDERED: Lactated Ringers 1000 ml BAG 1,000 ML IV ONE ×2 (13:37→20:29)
[2020-11-11] MEDS ORDERED: NS 0.9% IV ONE (14:30)
[2020-11-11] MEDS ORDERED: INFLIXIMAB ABDA IV ONE (14:30)
[2020-11-11] MEDS: Enoxaparin 40 MG/0.4 ML SYR SUBCUT SCH (17:21)
[2020-11-12] MEDS: Calcium Carb (TUMS) 500 mg CHEW TAB PO PRN (04:45)
[2020-11-12] MEDS ORDERED: HYDROmorphone 0.5 MG/0.5 ML SYRINGE IV PRN ×2 (06:56→15:27)
[2020-11-12] MEDS: SPIRIVA Respimat (tiotropium) 2.5 mcg/inh Inhaler INH SCH (07:31)
[2020-11-12] MEDS: Mometasone/Formoter 200/5 MDI INH SCH ×2 (07:32→19:10)
[2020-11-12] MEDS: Cholecalciferol (VIT D3) 1,000 unit TAB PO SCH (08:30)
[2020-11-12] MEDS: Potassium Chloride LIQUID 20 MEQ/15 ML LIQUID PO SCH (08:32)
[2020-11-12 08:39] LABS: Lipase 26 U/L (11.0-82.0)
[2020-11-12] MEDS ORDERED: Iodixanol (CONTRAST) 320 MG/ML 100 ML SDV IV ONE (13:26)
[2020-11-12] MEDS ORDERED: NS 0.9% 1000 ml BAG 1,000 ML IV SCH ×2 (15:30→17:30)
[2020-11-12] MEDS: Pantoprazole VIAL 40 MG VIAL IV SCH (15:47)
[2020-11-12 15:58] LABS: Cytomegalovirus IgG Antibody Positive (Negative)
[2020-11-12] MEDS ORDERED: Zosyn per Pharmacy NOTE FOLLOW UP SCH (16:00)
[2020-11-12] MEDS ORDERED: Piperacillin/Tazobac ADVAN 3.375 GM in NS 0.9% 100 ml BAG 100 ML IV ONE (16:00)
[2020-11-12] MEDS ORDERED: NS 0.9% 1000 ml BAG 1,000 ML IV ONE (16:28)
[2020-11-12 16:55] LABS: ABS Lymphocytes 0.3 10^3/ul (1.0-4.8); ABS Monocytes 0.5 10^3/ul (0-0.8); ABS Neutrophils 11.3 10^3/ul (1.5-7.7); Hematocrit 29 % (35-47); Hemoglobin 9.7 g/dL (12.0-16.0); Lymphocyte % 2.3 %; Mean Corpuscular HGB Conc 34 g/dL (31-36); Mean Corpuscular Hemoglobin 28 pg (27-31); Mean Corpuscular Volume 83 fL (80-97); Mean Platelet Volume 8.9 fL (7.4-10.4); Platelet Count 167 10^3/uL (150-450); Red Blood Count 3.46 10^6 /uL (3.70-4.87); Red Cell Distribution Width 22 % (10-15); White Blood Count 12.1 10^3/uL (3.5-10.8)
[2020-11-12] MEDS ORDERED: HYDROmorphone 1 MG/1 ML SYRINGE IV PRN (17:23)
[2020-11-12 17:26] LABS: Albumin 2.9 g/dL (3.2-5.2); EGFR Non-African American 125.6 (>60); Globulin 2.8 g/dL (2-4); Potassium 3.9 mmol/L (3.5-5.0); Total Bilirubin 0.5 mg/dL (0.2-1.0); Total Protein 5.7 g/dL (6.4-8.9)
[2020-11-12] MEDS ORDERED: Lactated Ringers 1000 ml BAG 1,000 ML IV SCH (18:00)
[2020-11-12] MEDS ORDERED: Lactated Ringers 1000 ml BAG 1,000 ML IV ONE (18:18)
[2020-11-12] MEDS: ZOSYN 3.375 GM Q8H per EXTENDED INFUSION IV SCH (20:12)
[2020-11-12] MEDS ORDERED: Midazolam 2 mg/2 ml VIAL 1 mg/ml 2 ml VIAL (2 mg) ONE ×2 (20:27→22:33)
[2020-11-12] MEDS ORDERED: Etomidate 20 mg/10 ml 2 MG/ML 10 ml VIAL ONE (20:27)
[2020-11-12] MEDS ORDERED: Succinylcholine 200 mg VIAL 20 mg/ml 10 ml VIAL (200 mg) ONE (20:27)
[2020-11-12] MEDS ORDERED: fentaNYL 100 mcg/2 ml 50 MCG/ML VIAL ONE ×2 (20:27→22:28)
[2020-11-12] MEDS ORDERED: Lidocaine 2% PF 5 ML VIAL ONE (20:28)
[2020-11-12] MEDS ORDERED: Bupivacaine 0.25% EPI 200,000 30 ML SDV ONE (20:48)
[2020-11-12] MEDS ORDERED: Rocuronium 50 mg VIAL 10 mg/ml 5 ml VIAL (50 mg) ONE (21:46)
[2020-11-12] MEDS ORDERED: Metoprolol Tartrate 5 mg VIAL 5 ml VIAL (1 mg/ml) ONE (22:11)
[2020-11-12] MEDS ORDERED: fentaNYL 100 mcg/2 ml 50 MCG/ML VIAL IV SLOW PU PRN (23:05)
[2020-11-12] MEDS ORDERED: Heparin DRIP 25,000 UNITS BAG 25,000 UNITS/500 ML BAG IV SCH (23:15)
[2020-11-12] MEDS: Midazolam 2 mg/2 ml VIAL 1 mg/ml 2 ml VIAL (2 mg) IV SLOW PU PRN (23:41)
[2020-11-12] MEDS ORDERED: fentaNYL INFUSION BAG 50MCG/ML 2,500 MCG/50 ML BAG IV SCH (23:45)
[2020-11-12] MEDS ORDERED: NORMOSOL-R pH 7.4 1000 mL BAG 1,000 ML IV SCH (23:45)
[2020-11-12] MEDS ORDERED: Heparin 5000 UNITS/ML 1 mL VIAL IV SCH (23:45)
[2020-11-13] MEDS: Chlorhexidine MOUTHWASH 0.12% 15 ML UDC SCH ×6 (01:34→22:24)
[2020-11-13] MEDS: Midazolam 2 mg/2 ml VIAL 1 mg/ml 2 ml VIAL (2 mg) IV SLOW PU PRN ×4 (01:53→09:24)
[2020-11-13 03:04] LABS: Urine Appearance Cloudy; Urine Bilirubin Negative (Negative); Urine Blood Negative (Negative); Urine Color Yellow; Urine Glucose 3+(>=500 mg/dL) (Negative); Urine Ketones Negative (Negative); Urine Nitrite Negative (Negative); Urine Protein 1+(30 mg/dL) (Negative); Urine Urobilinogen Negative (Negative)
[2020-11-13 03:16] LABS: Urine Bacteria Absent (Absent); Urine Red Blood Cell 3+(>10/hpf) (Absent); Urine White Blood Cell Trace(0-5/hpf) (Absent)
[2020-11-13] MEDS: ZOSYN 3.375 GM Q8H per EXTENDED INFUSION IV SCH ×3 (04:34→20:34)
[2020-11-13 06:02] LABS: ABS Lymphocytes 0.8 10^3/ul (1.0-4.8); ABS Monocytes 0.3 10^3/ul (0-0.8); ABS Neutrophils 8.9 10^3/ul (1.5-7.7); Hematocrit 23 % (35-47); Hemoglobin 7.8 g/dL (12.0-16.0); Lymphocyte % 7.9 %; Mean Corpuscular HGB Conc 34 g/dL (31-36); Mean Corpuscular Hemoglobin 28 pg (27-31); Mean Corpuscular Volume 83 fL (80-97); Mean Platelet Volume 8.5 fL (7.4-10.4); Platelet Count 130 10^3/uL (150-450); Red Blood Count 2.78 10^6 /uL (3.70-4.87); Red Cell Distribution Width 21 % (10-15)
[2020-11-13 06:18] LABS: Albumin 2.2 g/dL (3.2-5.2); Calcium 7.8 mg/dL (8.6-10.3); EGFR Non-African American 125.6 (>60); Globulin 2.1 g/dL (2-4); Magnesium 1.6 mg/dL (1.9-2.7); Phosphorus 2.2 mg/dL (2.5-5.0); Potassium 3.6 mmol/L (3.5-5.0); Total Bilirubin 0.4 mg/dL (0.2-1.0); Total Protein 4.3 g/dL (6.4-8.9)
[2020-11-13 06:24] LABS: Activated Partial Thrombo Time 54.3 seconds (26.0-38.0); INR 1.59 (0.86-1.15)
[2020-11-13] MEDS ORDERED: NORMOSOL-R pH 7.4 1000 mL BAG 1,000 ML IV SCH ×2 (07:00→11:00)
[2020-11-13] MEDS ORDERED: Potassium Phosphate IV 15 MMOLE in NS 0.9% 250 ml 250 ML IVPB ONE (07:10)
[2020-11-13] MEDS ORDERED: Magnesium Sulf 4 GM/100 ML IV 4,000 MG/100 ML BAG IVPB ONE (07:10)
[2020-11-13] MEDS: Pantoprazole VIAL 40 MG VIAL IV SCH (08:50)
[2020-11-13] MEDS ORDERED: Albumin Human 5% 25 GM/500 ML BTL IV ONE (09:00)
[2020-11-13 09:18] LABS: Hematocrit 23 % (35-47); Hemoglobin 7.4 g/dL (12.0-16.0)
[2020-11-13] MEDS: SPIRIVA Respimat (tiotropium) 2.5 mcg/inh Inhaler INH SCH (11:45)
[2020-11-13] MEDS ORDERED: fentaNYL 100 mcg/2 ml 50 MCG/ML VIAL ONE (11:49)
[2020-11-13] MEDS ORDERED: Lorazepam PYXIS KEY PRN (12:10)
[2020-11-13] MEDS ORDERED: LORazepam 2 mg VIAL 1 ml IV PUSH PRN (12:10)
[2020-11-13] MEDS: fentaNYL 100 mcg/2 ml 50 MCG/ML VIAL IV SLOW PU PRN (12:31)
[2020-11-13] MEDS ORDERED: Rocuronium 50 mg VIAL 10 mg/ml 5 ml VIAL (50 mg) ONE ×2 (16:08→17:45)
[2020-11-13] MEDS ORDERED: fentaNYL 250 mcg/5 ml 50 MCG/ML 5 ml VIAL (250 MCG) ONE (16:10)
[2020-11-13 16:36] LABS: Hematocrit 27 % (35-47); Hemoglobin 9.2 g/dL (12.0-16.0); Mean Corpuscular HGB Conc 34 g/dL (31-36); Mean Corpuscular Hemoglobin 29 pg (27-31); Mean Corpuscular Volume 86 fL (80-97); Mean Platelet Volume 8.4 fL (7.4-10.4); Platelet Count 106 10^3/uL (150-450); Red Blood Count 3.21 10^6 /uL (3.70-4.87); Red Cell Distribution Width 20 % (10-15); White Blood Count 11.4 10^3/uL (3.5-10.8)
[2020-11-13] MEDS ORDERED: Propofol 10 MG/ML 20 ML BTL ONE (16:42)
[2020-11-13 17:32] LABS: PCO2 Arterial 33 mmHg (35-45); PO2 Arterial 237 mmHg (80-100)
[2020-11-13] MEDS ORDERED: Metoprolol Tartrate 5 mg VIAL 5 ml VIAL (1 mg/ml) ONE (17:34)
[2020-11-13 17:55] LABS: ABS Lymphocytes 1.4 10^3/ul (1.0-4.8); ABS Monocytes 0.4 10^3/ul (0-0.8); ABS Neutrophils 9.5 10^3/ul (1.5-7.7); Eosinophil % 0.2 %; Lymphocyte % 12.7 %
[2020-11-13] MEDS ORDERED: Ondansetron 4 mg VIAL 2 MG/ML 2 ml VIAL ONE (18:12)
[2020-11-14] MEDS: NORMOSOL-R pH 7.4 1000 mL BAG 1,000 ML IV SCH ×3 (01:21→20:47)
[2020-11-14] MEDS: Chlorhexidine MOUTHWASH 0.12% 15 ML UDC SCH ×3 (01:31→08:54)
[2020-11-14] MEDS: ZOSYN 3.375 GM Q8H per EXTENDED INFUSION IV SCH ×3 (04:44→20:12)
[2020-11-14 04:49] LABS: Hematocrit 27 % (35-47); Hemoglobin 9.1 g/dL (12.0-16.0); Mean Corpuscular HGB Conc 34 g/dL (31-36); Mean Corpuscular Hemoglobin 28 pg (27-31); Mean Corpuscular Volume 84 fL (80-97); Mean Platelet Volume 8.6 fL (7.4-10.4); Platelet Count 105 10^3/uL (150-450); Red Blood Count 3.22 10^6 /uL (3.70-4.87); Red Cell Distribution Width 20 % (10-15); White Blood Count 12.2 10^3/uL (3.5-10.8)
[2020-11-14 05:06] LABS: Albumin 2.2 g/dL (3.2-5.2); Albumin/Globulin Ratio 1.1 (1-3); Calcium 7.3 mg/dL (8.6-10.3); EGFR Non-African American 125.6 (>60); Magnesium 2.2 mg/dL (1.9-2.7); Phosphorus 1.8 mg/dL (2.5-5.0); Potassium 3.2 mmol/L (3.5-5.0); Total Bilirubin 0.6 mg/dL (0.2-1.0); Total Protein 4.2 g/dL (6.4-8.9)
[2020-11-14 05:13] LABS: ABS Eosinophils 0.1 10^3/ul (0-0.6); ABS Lymphocytes 1.7 10^3/ul (1.0-4.8); ABS Monocytes 0.3 10^3/ul (0-0.8); ABS Neutrophils 10.1 10^3/ul (1.5-7.7); Eosinophil % 0.6 %; Lymphocyte % 13.9 %
[2020-11-14] MEDS: KCL 20 MEQ/100 ML IVPREMIX 20 MEQ/100 ML BAG IV SCH ×3 (05:50→10:43)
[2020-11-14] MEDS: SPIRIVA Respimat (tiotropium) 2.5 mcg/inh Inhaler INH SCH (06:59)
[2020-11-14] MEDS: Pantoprazole VIAL 40 MG VIAL IV SCH (08:00)
[2020-11-14] MEDS ORDERED: Albumin Human 25% 25 GM/100 ML BTL IV ONE (09:00)
[2020-11-14] MEDS ORDERED: Potassium Phosphate IV 15 MMOLE in NS 0.9% 250 ml 250 ML IVPB ONE (09:00)
[2020-11-14] MEDS ORDERED: Furosemide 40 mg/4 ml IV VIAL IV ONE (09:30)
[2020-11-14] MEDS: Heparin 5000 UNITS/ML 1 mL VIAL SUBCUT SCH ×2 (10:43→20:46)
[2020-11-14 12:29] LABS: Calcium 7.6 mg/dL (8.6-10.3); EGFR African American 129.5 (>60); Potassium 4.1 mmol/L (3.5-5.0)
[2020-11-14 14:48] LABS: Phosphorus 2.4 mg/dL (2.5-5.0)
[2020-11-14 15:25] LABS: Calprotectin 362 mcg/g
[2020-11-14] MEDS: TPN 24 HR with Dextrose 50% Water 500 ML, Amino Acid Infusion 10% 850 ML, Sterile Water... CENTR SCH (17:22)
[2020-11-15] MEDS: ZOSYN 3.375 GM Q8H per EXTENDED INFUSION IV SCH (04:22)
[2020-11-15 04:55] LABS: Albumin 2.2 g/dL (3.2-5.2); Albumin/Globulin Ratio 1.2 (1-3); Calcium 7.5 mg/dL (8.6-10.3); EGFR African American 124.2 (>60); EGFR Non-African American 102.6 (>60); Globulin 1.9 g/dL (2-4); Magnesium 1.9 mg/dL (1.9-2.7); Phosphorus 1.4 mg/dL (2.5-5.0); Potassium 3.5 mmol/L (3.5-5.0); Total Bilirubin 0.4 mg/dL (0.2-1.0); Total Protein 4.1 g/dL (6.4-8.9)
[2020-11-15 05:02] LABS: ABS Eosinophils 0.1 10^3/ul (0-0.6); ABS Monocytes 0.4 10^3/ul (0-0.8); Eosinophil % 0.6 %; Hematocrit 24 % (35-47); Hemoglobin 8.3 g/dL (12.0-16.0); Lymphocyte % 18.9 %; Mean Corpuscular HGB Conc 34 g/dL (31-36); Mean Corpuscular Hemoglobin 29 pg (27-31); Mean Corpuscular Volume 85 fL (80-97); Mean Platelet Volume 8.5 fL (7.4-10.4); Platelet Count 97 10^3/uL (150-450); Red Blood Count 2.87 10^6 /uL (3.70-4.87); Red Cell Distribution Width 20 % (10-15); White Blood Count 10.4 10^3/uL (3.5-10.8)
[2020-11-15] MEDS: NORMOSOL-R pH 7.4 1000 mL BAG 1,000 ML IV SCH (05:03)
[2020-11-15] MEDS: SPIRIVA Respimat (tiotropium) 2.5 mcg/inh Inhaler INH SCH (07:27)
[2020-11-15] MEDS ORDERED: fentaNYL 100 mcg/2 ml 50 MCG/ML VIAL IV SLOW PU PRN (08:39)
[2020-11-15] MEDS ORDERED: Potassium Phosphate IV 30 MMOLE in NS 0.9% 250 ml 250 ML IVPB ONE (09:00)
[2020-11-15] MEDS: Heparin 5000 UNITS/ML 1 mL VIAL SUBCUT SCH (09:30)
[2020-11-15] MEDS: Pantoprazole VIAL 40 MG VIAL IV SCH (09:34)
[2020-11-15] MEDS ORDERED: Enoxaparin 80 MG/0.8 ML SYR SUBCUT SCH (10:00)
[2020-11-15] MEDS: fentaNYL 100 mcg/2 ml 50 MCG/ML VIAL IV SLOW PU PRN (11:51)
[2020-11-15] MEDS: Lactated Ringers 1000 ml BAG 1,000 ML IV SCH ×2 (12:45→22:47)
[2020-11-15] MEDS: Morphine 2 MG/ML SYRINGE IV PRN (15:56)
[2020-11-15] MEDS: TPN 24 HR with Dextrose 50% Water 500 ML, Amino Acid Infusion 10% 850 ML, Sterile Water... CENTR SCH (16:25)
[2020-11-15] MEDS: Enoxaparin 80 MG/0.8 ML SYR SUBCUT SCH (17:30)
[2020-11-16 05:34] LABS: INR 1.21 (0.86-1.15)
[2020-11-16 05:44] LABS: Albumin 2.3 g/dL (3.2-5.2); Albumin/Globulin Ratio 1.1 (1-3); Calcium 7.6 mg/dL (8.6-10.3); EGFR African American 173.1 (>60); EGFR Non-African American 143.1 (>60); Globulin 2.1 g/dL (2-4); Magnesium 1.8 mg/dL (1.9-2.7); Phosphorus 1.9 mg/dL (2.5-5.0); Potassium 4.1 mmol/L (3.5-5.0); Total Bilirubin 0.4 mg/dL (0.2-1.0); Total Protein 4.4 g/dL (6.4-8.9)
[2020-11-16] MEDS: Enoxaparin 80 MG/0.8 ML SYR SUBCUT SCH ×2 (05:50→16:51)
[2020-11-16 06:20] LABS: ABS Eosinophils 0.1 10^3/ul (0-0.6); ABS Lymphocytes 1.6 10^3/ul (1.0-4.8); ABS Monocytes 0.3 10^3/ul (0-0.8); Eosinophil % 1.8 %; Hematocrit 25 % (35-47); Hemoglobin 8.1 g/dL (12.0-16.0); Mean Corpuscular HGB Conc 33 g/dL (31-36); Mean Corpuscular Hemoglobin 28 pg (27-31); Mean Corpuscular Volume 86 fL (80-97); Mean Platelet Volume 8.3 fL (7.4-10.4); Platelet Count 96 10^3/uL (150-450); Red Blood Count 2.85 10^6 /uL (3.70-4.87); Red Cell Distribution Width 21 % (10-15)
[2020-11-16] MEDS: SPIRIVA Respimat (tiotropium) 2.5 mcg/inh Inhaler INH SCH (07:53)
[2020-11-16] MEDS: Pantoprazole VIAL 40 MG VIAL IV SCH (08:54)
[2020-11-16] MEDS: Morphine 2 MG/ML SYRINGE IV PRN ×3 (10:41→20:47)
[2020-11-16] MEDS ORDERED: Magnesium Sulfate 2 gm BAG 2 GM/50 ML BAG IVPB ONE (11:25)
[2020-11-16] MEDS ORDERED: Potassium Phosphate IV 15 MMOLE in NS 0.9% 250 ml 250 ML IVPB ONE (12:00)
[2020-11-16] MEDS: TPN 24 HR with Dextrose 50% Water 500 ML, Amino Acid Infusion 10% 850 ML, Sterile Water... CENTR SCH (16:51)
[2020-11-17] MEDS: Morphine 2 MG/ML SYRINGE IV PRN ×3 (02:39→17:19)
[2020-11-17] MEDS: Lactated Ringers 1000 ml BAG 1,000 ML IV SCH (02:42)
[2020-11-17] MEDS: Enoxaparin 80 MG/0.8 ML SYR SUBCUT SCH ×2 (05:23→17:09)
[2020-11-17 05:54] LABS: ABS Eosinophils 0.1 10^3/ul (0-0.6); ABS Lymphocytes 1.8 10^3/ul (1.0-4.8); ABS Monocytes 0.3 10^3/ul (0-0.8); ABS Neutrophils 4.2 10^3/ul (1.5-7.7); Eosinophil % 1.7 %; Hematocrit 27 % (35-47); Hemoglobin 9.2 g/dL (12.0-16.0); Lymphocyte % 28.3 %; Mean Corpuscular HGB Conc 34 g/dL (31-36); Mean Corpuscular Hemoglobin 29 pg (27-31); Mean Corpuscular Volume 86 fL (80-97); Mean Platelet Volume 8.7 fL (7.4-10.4); Platelet Count 105 10^3/uL (150-450); Red Blood Count 3.14 10^6 /uL (3.70-4.87); Red Cell Distribution Width 20 % (10-15); White Blood Count 6.4 10^3/uL (3.5-10.8)
[2020-11-17 06:06] LABS: Albumin 2.3 g/dL (3.2-5.2); Albumin/Globulin Ratio 1.1 (1-3); Calcium 7.6 mg/dL (8.6-10.3); EGFR African American 206.8 (>60); EGFR Non-African American 170.9 (>60); Globulin 2.1 g/dL (2-4); Magnesium 1.9 mg/dL (1.9-2.7); Potassium 4.1 mmol/L (3.5-5.0); Total Bilirubin 0.3 mg/dL (0.2-1.0); Total Protein 4.4 g/dL (6.4-8.9)
[2020-11-17] MEDS: SPIRIVA Respimat (tiotropium) 2.5 mcg/inh Inhaler INH SCH (07:00)
[2020-11-17] MEDS: Pantoprazole VIAL 40 MG VIAL IV SCH (07:59)
[2020-11-17] MEDS: TPN 24 HR with Dextrose 50% Water 500 ML, Amino Acid Infusion 10% 850 ML, Sterile Water... CENTR SCH (17:08)
[2020-11-18] MEDS: Morphine 2 MG/ML SYRINGE IV PRN ×3 (00:12→13:21)
[2020-11-18] MEDS: Enoxaparin 80 MG/0.8 ML SYR SUBCUT SCH ×2 (05:44→17:46)
[2020-11-18 07:03] LABS: Albumin 2.2 g/dL (3.2-5.2); Calcium 7.8 mg/dL (8.6-10.3); EGFR African American 164.1 (>60); EGFR Non-African American 135.6 (>60); Globulin 2.2 g/dL (2-4); Magnesium 1.9 mg/dL (1.9-2.7); Phosphorus 2.4 mg/dL (2.5-5.0); Potassium 4.3 mmol/L (3.5-5.0); Total Bilirubin 0.3 mg/dL (0.2-1.0); Total Protein 4.4 g/dL (6.4-8.9)
[2020-11-18] MEDS: Pantoprazole VIAL 40 MG VIAL IV SCH (08:30)
[2020-11-18] MEDS: SPIRIVA Respimat (tiotropium) 2.5 mcg/inh Inhaler INH SCH (09:02)
[2020-11-18] MEDS: TPN 24 HR with Dextrose 50% Water 500 ML, Amino Acid Infusion 10% 850 ML, Sterile Water... CENTR SCH (17:04)
[2020-11-19] MEDS: Enoxaparin 80 MG/0.8 ML SYR SUBCUT SCH ×2 (06:01→18:33)
[2020-11-19] MEDS: SPIRIVA Respimat (tiotropium) 2.5 mcg/inh Inhaler INH SCH (08:39)
[2020-11-19] MEDS: Pantoprazole VIAL 40 MG VIAL IV SCH (09:51)
[2020-11-19 11:55] LABS: ABS Eosinophils 0.1 10^3/ul (0-0.6); ABS Lymphocytes 1.3 10^3/ul (1.0-4.8); ABS Monocytes 0.2 10^3/ul (0-0.8); ABS Neutrophils 3.7 10^3/ul (1.5-7.7); Eosinophil % 1.5 %; Hematocrit 26 % (35-47); Hemoglobin 8.5 g/dL (12.0-16.0); Mean Corpuscular HGB Conc 33 g/dL (31-36); Mean Corpuscular Hemoglobin 29 pg (27-31); Mean Corpuscular Volume 87 fL (80-97); Mean Platelet Volume 9.3 fL (7.4-10.4); Nucleated Red Blood Cells % 0.1; Platelet Count 107 10^3/uL (150-450); Red Blood Count 2.98 10^6 /uL (3.70-4.87); Red Cell Distribution Width 21 % (10-15); White Blood Count 5.4 10^3/uL (3.5-10.8)
[2020-11-19 12:04] LABS: C Reactive Protein 14.28 mg/L (<8.01); Calcium 7.8 mg/dL (8.6-10.3); EGFR African American 173.1 (>60); EGFR Non-African American 143.1 (>60); Potassium 3.8 mmol/L (3.5-5.0)
[2020-11-19] MEDS: TPN 24 HR with Dextrose 50% Water 500 ML, Amino Acid Infusion 10% 850 ML, Sterile Water... CENTR SCH (16:54)
[2020-11-20] MEDS: Enoxaparin 80 MG/0.8 ML SYR SUBCUT SCH (05:47)
[2020-11-20] MEDS: SPIRIVA Respimat (tiotropium) 2.5 mcg/inh Inhaler INH SCH (08:34)
[2020-11-20] MEDS: Pantoprazole VIAL 40 MG VIAL IV SCH (08:36)
[2020-11-20 10:44] LABS: Calcium 8.2 mg/dL (8.6-10.3); EGFR African American 148.4 (>60); EGFR Non-African American 122.6 (>60); Potassium 3.6 mmol/L (3.5-5.0)
[2020-11-20 12:11] LABS: Magnesium 1.9 mg/dL (1.9-2.7)
[2020-11-20] MEDS: Morphine 2 MG/ML SYRINGE IV PRN (20:34)
[2020-11-21] MEDS: SPIRIVA Respimat (tiotropium) 2.5 mcg/inh Inhaler INH SCH (07:34)
[2020-11-21 07:48] VITALS: BP 106/71
[2020-11-21] MEDS: Pantoprazole VIAL 40 MG VIAL IV SCH (09:09)
[2020-11-21] MEDS ORDERED: Warfarin DAILY REMINDER **NOTE FOLLOW UP SCH (17:00)
== END 2020-11-21 11:30 | DRG 329 ==
LOC: ED 10:05 → MED 10:05 → OBSVTOIN 13:16 → INTOOBSV 13:16 → ICU 11-12 17:11 → SSU 11-15 10:56
PROVIDERS: ADMIT Internal Medicine; ATTEND Hospitalist

== ENCOUNTER 2020-11-21 10:11 | Inpatient (IN) ==
[2020-11-21] MEDS ORDERED: Albuterol HFA INHALER 8 gm MDI INH PRN (10:54)
[2020-11-21] MEDS: Enoxaparin 80 MG/0.8 ML SYR SUBCUT SCH (14:09)
[2020-11-21] MEDS: Mometasone/Formoter 200/5 MDI INH SCH (20:46)
[2020-11-22] MEDS: Enoxaparin 80 MG/0.8 ML SYR SUBCUT SCH ×3 (02:33→20:40)
[2020-11-22 06:47] LABS: INR 1.16 (0.86-1.15)
[2020-11-22 06:59] LABS: Albumin 2.5 g/dL (3.2-5.2); Albumin/Globulin Ratio 1.3 (1-3); EGFR African American 159.9 (>60); EGFR Non-African American 132.1 (>60); Potassium 3.6 mmol/L (3.5-5.0); Total Bilirubin 0.4 mg/dL (0.2-1.0); Total Protein 4.5 g/dL (6.4-8.9)
[2020-11-22 07:06] LABS: ABS Basophils 0.1 10^3/ul (0-0.2); ABS Eosinophils 0.1 10^3/ul (0-0.6); ABS Lymphocytes 1.9 10^3/ul (1.0-4.8); ABS Monocytes 0.3 10^3/ul (0-0.8); ABS Neutrophils 3.3 10^3/ul (1.5-7.7); Eosinophil % 1.6 %; Hematocrit 25 % (35-47); Hemoglobin 8.2 g/dL (12.0-16.0); Lymphocyte % 33.1 %; Mean Corpuscular HGB Conc 33 g/dL (31-36); Mean Corpuscular Hemoglobin 29 pg (27-31); Mean Corpuscular Volume 89 fL (80-97); Mean Platelet Volume 9.8 fL (7.4-10.4); Nucleated Red Blood Cells % 0.1; Platelet Count 141 10^3/uL (150-450); Red Cell Distribution Width 22 % (10-15); White Blood Count 5.6 10^3/uL (3.5-10.8)
[2020-11-22] MEDS: Mometasone/Formoter 200/5 MDI INH SCH ×2 (09:12→20:40)
[2020-11-22] MEDS: SPIRIVA Respimat (tiotropium) 2.5 mcg/inh Inhaler INH SCH (09:52)
[2020-11-23 06:16] LABS: INR 1.28 (0.86-1.15)
[2020-11-23] MEDS: SPIRIVA Respimat (tiotropium) 2.5 mcg/inh Inhaler INH SCH (08:10)
[2020-11-23] MEDS: Enoxaparin 80 MG/0.8 ML SYR SUBCUT SCH ×2 (08:11→21:23)
[2020-11-23] MEDS: Mometasone/Formoter 200/5 MDI INH SCH ×2 (08:11→21:25)
[2020-11-24 07:08] LABS: ABS Eosinophils 0.1 10^3/ul (0-0.6); ABS Monocytes 0.4 10^3/ul (0-0.8); ABS Neutrophils 2.1 10^3/ul (1.5-7.7); Eosinophil % 1.2 %; Hematocrit 25 % (35-47); Hemoglobin 8.3 g/dL (12.0-16.0); Lymphocyte % 44.5 %; Mean Corpuscular HGB Conc 34 g/dL (31-36); Mean Corpuscular Hemoglobin 29 pg (27-31); Mean Corpuscular Volume 88 fL (80-97); Mean Platelet Volume 9.3 fL (7.4-10.4); Platelet Count 161 10^3/uL (150-450); Red Blood Count 2.83 10^6 /uL (3.70-4.87); Red Cell Distribution Width 23 % (10-15); White Blood Count 4.6 10^3/uL (3.5-10.8)
[2020-11-24 07:13] LABS: INR 1.26 (0.86-1.15)
[2020-11-24] MEDS: Enoxaparin 80 MG/0.8 ML SYR SUBCUT SCH ×2 (07:44→19:45)
[2020-11-24] MEDS: Mometasone/Formoter 200/5 MDI INH SCH ×2 (07:46→19:45)
[2020-11-24] MEDS: SPIRIVA Respimat (tiotropium) 2.5 mcg/inh Inhaler INH SCH (07:47)
[2020-11-25 06:50] LABS: INR 1.23 (0.86-1.15)
[2020-11-25] MEDS: Enoxaparin 80 MG/0.8 ML SYR SUBCUT SCH ×2 (07:42→20:12)
[2020-11-25] MEDS: SPIRIVA Respimat (tiotropium) 2.5 mcg/inh Inhaler INH SCH (07:43)
[2020-11-25] MEDS: Mometasone/Formoter 200/5 MDI INH SCH ×2 (07:44→20:16)
[2020-11-25 09:17] LABS: ABS Lymphocytes 1.8 10^3/ul (1.0-4.8); ABS Monocytes 0.4 10^3/ul (0-0.8); ABS Neutrophils 2.5 10^3/ul (1.5-7.7); Eosinophil % 0.9 %; Hematocrit 28 % (35-47); Hemoglobin 9.4 g/dL (12.0-16.0); Lymphocyte % 38.6 %; Mean Corpuscular HGB Conc 33 g/dL (31-36); Mean Corpuscular Hemoglobin 29 pg (27-31); Mean Corpuscular Volume 89 fL (80-97); Mean Platelet Volume 9.3 fL (7.4-10.4); Platelet Count 191 10^3/uL (150-450); Red Blood Count 3.21 10^6 /uL (3.70-4.87); Red Cell Distribution Width 22 % (10-15); White Blood Count 4.6 10^3/uL (3.5-10.8)
[2020-11-25 09:35] LABS: Calcium 8.2 mg/dL (8.6-10.3); Potassium 3.2 mmol/L (3.5-5.0)
[2020-11-25 09:40] LABS: C Reactive Protein 3.48 mg/L (<8.01); EGFR African American 126.8 (>60); EGFR Non-African American 104.8 (>60)
[2020-11-26 07:20] LABS: ABS Lymphocytes 2.3 10^3/ul (1.0-4.8); ABS Monocytes 0.3 10^3/ul (0-0.8); ABS Neutrophils 1.5 10^3/ul (1.5-7.7); Eosinophil % 1.1 %; Hematocrit 26 % (35-47); Hemoglobin 8.7 g/dL (12.0-16.0); Lymphocyte % 53.8 %; Mean Corpuscular HGB Conc 33 g/dL (31-36); Mean Corpuscular Hemoglobin 29 pg (27-31); Mean Corpuscular Volume 89 fL (80-97); Mean Platelet Volume 9.9 fL (7.4-10.4); Platelet Count 172 10^3/uL (150-450); Red Blood Count 2.98 10^6 /uL (3.70-4.87); Red Cell Distribution Width 23 % (10-15); White Blood Count 4.2 10^3/uL (3.5-10.8)
[2020-11-26 07:28] LABS: INR 1.37 (0.86-1.15)
[2020-11-26] MEDS: SPIRIVA Respimat (tiotropium) 2.5 mcg/inh Inhaler INH SCH (07:30)
[2020-11-26] MEDS: Mometasone/Formoter 200/5 MDI INH SCH ×2 (07:30→20:09)
[2020-11-26] MEDS: Enoxaparin 80 MG/0.8 ML SYR SUBCUT SCH ×2 (07:31→20:10)
[2020-11-26 07:41] LABS: Albumin 2.8 g/dL (3.2-5.2); Albumin/Globulin Ratio 1.2 (1-3); Calcium 7.9 mg/dL (8.6-10.3); EGFR African American 129.5 (>60); Globulin 2.3 g/dL (2-4); Potassium 3.3 mmol/L (3.5-5.0); Total Bilirubin 0.4 mg/dL (0.2-1.0); Total Protein 5.1 g/dL (6.4-8.9)
[2020-11-27 06:12] LABS: INR 1.85 (0.86-1.15)
[2020-11-27] MEDS: Enoxaparin 80 MG/0.8 ML SYR SUBCUT SCH ×2 (08:21→20:14)
[2020-11-27] MEDS: SPIRIVA Respimat (tiotropium) 2.5 mcg/inh Inhaler INH SCH (08:22)
[2020-11-27] MEDS: Potassium Chlor 20 meq TAB.ER PO SCH ×2 (08:22→20:13)
[2020-11-27] MEDS: Mometasone/Formoter 200/5 MDI INH SCH ×2 (08:23→20:16)
[2020-11-27] MEDS: Warfarin DAILY REMINDER **NOTE FOLLOW UP SCH (17:24)
[2020-11-28 07:03] LABS: ABS Eosinophils 0.1 10^3/ul (0-0.6); ABS Lymphocytes 2.9 10^3/ul (1.0-4.8); ABS Monocytes 0.4 10^3/ul (0-0.8); ABS Neutrophils 1.4 10^3/ul (1.5-7.7); Eosinophil % 1.7 %; Hematocrit 28 % (35-47); Hemoglobin 8.9 g/dL (12.0-16.0); Lymphocyte % 59.7 %; Mean Corpuscular HGB Conc 32 g/dL (31-36); Mean Corpuscular Hemoglobin 30 pg (27-31); Mean Corpuscular Volume 92 fL (80-97); Mean Platelet Volume 9.8 fL (7.4-10.4); Nucleated Red Blood Cells % 0.9; Platelet Count 174 10^3/uL (150-450); Red Blood Count 3.02 10^6 /uL (3.70-4.87); Red Cell Distribution Width 24 % (10-15); White Blood Count 4.9 10^3/uL (3.5-10.8)
[2020-11-28 07:04] LABS: INR 2.54 (0.86-1.15)
[2020-11-28] MEDS: Potassium Chlor 20 meq TAB.ER PO SCH ×2 (08:36→20:21)
[2020-11-28] MEDS: Mometasone/Formoter 200/5 MDI INH SCH ×2 (08:37→20:24)
[2020-11-28] MEDS: SPIRIVA Respimat (tiotropium) 2.5 mcg/inh Inhaler INH SCH (08:37)
[2020-11-28] MEDS: Enoxaparin 80 MG/0.8 ML SYR SUBCUT SCH (08:38)
[2020-11-28] MEDS: Warfarin DAILY REMINDER **NOTE FOLLOW UP SCH (17:22)
[2020-11-29] MEDS: Potassium Chlor 20 meq TAB.ER PO SCH ×2 (08:24→21:33)
[2020-11-29] MEDS: Mometasone/Formoter 200/5 MDI INH SCH ×2 (08:25→21:34)
[2020-11-29] MEDS: SPIRIVA Respimat (tiotropium) 2.5 mcg/inh Inhaler INH SCH (08:25)
[2020-11-29 09:25] LABS: INR 3.67 (0.86-1.15)
[2020-11-29 09:36] LABS: Calcium 8.4 mg/dL (8.6-10.3); EGFR African American 116.9 (>60); EGFR Non-African American 96.6 (>60); Potassium 3.6 mmol/L (3.5-5.0)
[2020-11-29] MEDS: Warfarin DAILY REMINDER **NOTE FOLLOW UP SCH (17:18)
[2020-11-30 07:06] LABS: INR 4.53 (0.86-1.15)
[2020-11-30] MEDS: Potassium Chlor 20 meq TAB.ER PO SCH ×2 (08:42→20:23)
[2020-11-30] MEDS: SPIRIVA Respimat (tiotropium) 2.5 mcg/inh Inhaler INH SCH (08:43)
[2020-11-30] MEDS: Mometasone/Formoter 200/5 MDI INH SCH ×2 (08:43→20:23)
[2020-11-30] MEDS: Warfarin DAILY REMINDER **NOTE FOLLOW UP SCH (17:13)
[2020-11-30] MEDS ORDERED: Senna TAB 8.6 mg TAB PO PRN (19:37)
[2020-12-01 06:18] LABS: ABS Basophils 0.1 10^3/ul (0-0.2); ABS Eosinophils 0.1 10^3/ul (0-0.6); ABS Lymphocytes 3.4 10^3/ul (1.0-4.8); ABS Monocytes 0.6 10^3/ul (0-0.8); ABS Neutrophils 2.3 10^3/ul (1.5-7.7); Eosinophil % 1.7 %; Hematocrit 30 % (35-47); Hemoglobin 9.6 g/dL (12.0-16.0); Lymphocyte % 52.2 %; Mean Corpuscular HGB Conc 32 g/dL (31-36); Mean Corpuscular Hemoglobin 30 pg (27-31); Mean Corpuscular Volume 92 fL (80-97); Mean Platelet Volume 9.4 fL (7.4-10.4); Nucleated Red Blood Cells % 0.2; Platelet Count 182 10^3/uL (150-450); Red Blood Count 3.23 10^6 /uL (3.70-4.87); Red Cell Distribution Width 25 % (10-15); White Blood Count 6.5 10^3/uL (3.5-10.8)
[2020-12-01 06:39] LABS: INR 4.38 (0.86-1.15)
[2020-12-01] MEDS: Potassium Chlor 20 meq TAB.ER PO SCH ×2 (07:43→20:56)
[2020-12-01] MEDS: Mometasone/Formoter 200/5 MDI INH SCH ×2 (07:59→20:58)
[2020-12-01] MEDS: SPIRIVA Respimat (tiotropium) 2.5 mcg/inh Inhaler INH SCH (07:59)
[2020-12-01] MEDS: Warfarin DAILY REMINDER **NOTE FOLLOW UP SCH (16:54)
[2020-12-02 06:59] LABS: INR 3.36 (0.86-1.15)
[2020-12-02] MEDS: Potassium Chlor 20 meq TAB.ER PO SCH ×2 (07:36→20:30)
[2020-12-02] MEDS: SPIRIVA Respimat (tiotropium) 2.5 mcg/inh Inhaler INH SCH (07:38)
[2020-12-02] MEDS: Mometasone/Formoter 200/5 MDI INH SCH ×2 (07:39→20:35)
[2020-12-02] MEDS: Warfarin DAILY REMINDER **NOTE FOLLOW UP SCH (17:06)
[2020-12-03 05:10] VITALS: BP 144/72
[2020-12-03 07:18] LABS: INR 2.7 (0.86-1.15)
[2020-12-03 07:19] LABS: ABS Eosinophils 0.1 10^3/ul (0-0.6); ABS Lymphocytes 3.4 10^3/ul (1.0-4.8); ABS Monocytes 0.7 10^3/ul (0-0.8); ABS Neutrophils 2.9 10^3/ul (1.5-7.7); Eosinophil % 1.8 %; Hematocrit 28 % (35-47); Hemoglobin 9.3 g/dL (12.0-16.0); Lymphocyte % 46.7 %; Mean Corpuscular HGB Conc 33 g/dL (31-36); Mean Corpuscular Hemoglobin 30 pg (27-31); Mean Corpuscular Volume 91 fL (80-97); Mean Platelet Volume 9.9 fL (7.4-10.4); Nucleated Red Blood Cells % 0.1; Platelet Count 176 10^3/uL (150-450); Red Blood Count 3.09 10^6 /uL (3.70-4.87); Red Cell Distribution Width 24 % (10-15); White Blood Count 7.2 10^3/uL (3.5-10.8)
[2020-12-03 07:33] LABS: Albumin 2.9 g/dL (3.2-5.2); Albumin/Globulin Ratio 1.5 (1-3); Calcium 8.1 mg/dL (8.6-10.3); EGFR African American 141.6 (>60); Potassium 3.9 mmol/L (3.5-5.0); Total Bilirubin 0.3 mg/dL (0.2-1.0); Total Protein 4.9 g/dL (6.4-8.9)
[2020-12-03] MEDS: Potassium Chlor 20 meq TAB.ER PO SCH (10:23)
[2020-12-03] MEDS: Mometasone/Formoter 200/5 MDI INH SCH (10:23)
[2020-12-03] MEDS: SPIRIVA Respimat (tiotropium) 2.5 mcg/inh Inhaler INH SCH (10:23)
== END 2020-12-03 14:19 | disposition home health service (06) | DRG 950 ==
LOC: PMRU 10:32
PROVIDERS: ADMIT Physical Medicine & Rehabilitation; ATTEND Physical Medicine & Rehabilitation

== ENCOUNTER 2023-07-17 12:12 | Inpatient (IN) ==
[2023-07-17 13:20] LABS: ABS Basophils 0.1 10^3/uL (0.0-0.1); ABS Eosinophils 0.2 10^3/uL (0.0-0.5); ABS Monocytes 0.7 10^3/uL (0.0-0.9); ABS Nucleated RBC 0.01 10^3/ul; Eosinophil % 1.6 %; Hematocrit 36.9 % (35-45); Hemoglobin 12.5 g/dL (11.5-14.3); Lymphocyte % 10.2 %; Mean Corpuscular Hemoglobin 32.5 pg (27-33); Mean Corpuscular Hgb Conc 33.8 g/dL (31-36); Mean Platelet Volume 9.5 fL (7.5-11.2); Nucleated Red Blood Cells % 0.1 %/100WBC (0.0-0.8); Platelet Count 183 10^3/uL (150-450); Red Blood Count 3.84 10^6/uL (3.63-4.92); White Blood Count 9.9 10^3/uL (3.8-11.8)
[2023-07-17 13:54] LABS: INR 8.18 (0.83-1.13)
[2023-07-17 14:20] LABS: Albumin 3.8 g/dL (3.2-5.2); Albumin/Globulin Ratio 1.4 (1-3); Calcium 8.6 mg/dL (8.6-10.3); Creatinine, Serum 1.64 mg/dL (0.51-0.95); Globulin 2.7 g/dL (2-4); Potassium 4.4 mmol/L (3.5-5.0); Total Bilirubin 0.3 mg/dL (0.2-1.0); Total Protein 6.5 g/dL (6.4-8.9); eGFR CKD-EPI 29.7 (>60)
[2023-07-17 15:08] LABS: High Sensitivity Troponin 1 Hr 15 pg/mL (<15)
[2023-07-17 16:01] LABS: Urine Appearance Clear; Urine Bilirubin Negative (Negative); Urine Blood Negative (Negative); Urine Color Yellow; Urine Glucose Negative (Negative); Urine Ketones Negative (Negative); Urine Nitrite Negative (Negative); Urine Protein Negative (Negative); Urine Urobilinogen Negative (Negative)
[2023-07-17 16:05] LABS: Urine Bacteria Absent /HPF (Absent); Urine Red Blood Cell Trace(0-2/hpf) /HPF (0-Trace); Urine Squamous Epithelial Cell Present /HPF (Absent); Urine White Blood Cell Trace(0-5/hpf) /HPF (0-Trace)
[2023-07-17] MEDS: Phytonadione Oral Solution 5 MG/25 ML UDC PO ONE (17:03)
[2023-07-17 17:21] LABS: Hematocrit 37.1 % (35-45); Hemoglobin 12.6 g/dL (11.5-14.3)
[2023-07-17 19:45] LABS: Magnesium 2.1 mg/dL (1.9-2.7)
[2023-07-17] MEDS ORDERED: Albuterol HFA INHALER 8 gm MDI INH PRN (20:38)
[2023-07-17] MEDS: Lactated Ringers 1000 ml BAG 1,000 ML IV ONE (22:03)
[2023-07-17] MEDS: Mometasone/Formoter 200/5 MDI INH SCH (23:55)
[2023-07-18] MEDS: Lactated Ringers 1000 ml BAG 1,000 ML IV ONE (04:45)
[2023-07-18] MEDS: SPIRIVA Respimat (tiotropium) 2.5 mcg/inh Inhaler INH SCH (07:21)
[2023-07-18 07:57] LABS: ABS Basophils 0.1 10^3/uL (0.0-0.1); ABS Eosinophils 0.5 10^3/uL (0.0-0.5); ABS Lymphocytes 1.6 10^3/uL (1.0-4.8); ABS Monocytes 0.7 10^3/uL (0.0-0.9); ABS Neutrophils 5.8 10^3/uL (1.5-7.6); Eosinophil % 5.2 %; Hematocrit 34.1 % (35-45); Hemoglobin 11.5 g/dL (11.5-14.3); Lymphocyte % 18.5 %; Mean Corpuscular Hemoglobin 32.2 pg (27-33); Mean Corpuscular Hgb Conc 33.8 g/dL (31-36); Mean Corpuscular Volume 95.2 fL (80-97); Mean Platelet Volume 9.5 fL (7.5-11.2); Platelet Count 168 10^3/uL (150-450); Red Blood Count 3.59 10^6/uL (3.63-4.92); Red Cell Distribution Width 14.6 % (12-17); White Blood Count 8.6 10^3/uL (3.8-11.8)
[2023-07-18 08:24] LABS: Calcium 8.2 mg/dL (8.6-10.3); Creatinine, Serum 1.14 mg/dL (0.51-0.95); Potassium 3.9 mmol/L (3.5-5.0)
[2023-07-18 08:34] LABS: INR 8.77 (0.83-1.13)
[2023-07-18] MEDS: Cholecalciferol (VIT D3) 1,000 unit TAB PO SCH (08:58)
[2023-07-18] MEDS: Aspirin EC 81 mg TAB.EC (enteric coated) PO SCH (08:59)
[2023-07-18] MEDS ORDERED: Sulfur Hexaflouride MICROSPHR 25 MG VIAL ONE (10:26)
[2023-07-18] MEDS: NS 0.9% 500 ml BAG 500 ML IV ONE (13:37)
[2023-07-20 06:24] LABS: INR 3.78 (0.83-1.13)
[2023-07-20 07:05] LABS: Creatinine, Serum 0.95 mg/dL (0.51-0.95); Potassium 4.2 mmol/L (3.5-5.0); eGFR CKD-EPI 57.3 (>60)
[2023-07-20 13:41] VITALS: BP 146/46
== END 2023-07-20 14:55 | disposition home or self-care (01) | DRG 641 ==
LOC: ED 12:12 → SUATTDRO 20:34 → EDHOLD 20:34 → MEDTELE 07-18 02:08
PROVIDERS: ADMIT Student in an Organized Health Care Education/Training Program; ATTEND Internal Medicine

== ENCOUNTER 2023-09-18 10:20 | Inpatient (IN) ==
[2023-09-18] MEDS ORDERED: Metoprolol Tartrate 5 mg VIAL 5 ml VIAL (1 mg/ml) ONE (10:57)
[2023-09-18 10:58] LABS: ABS Basophils 0.1 10^3/uL (0.0-0.1); ABS Eosinophils 0.2 10^3/uL (0.0-0.5); ABS Monocytes 0.4 10^3/uL (0.0-0.9); ABS Neutrophils 6.6 10^3/uL (1.5-7.6); ABS Nucleated RBC 0.01 10^3/ul; Eosinophil % 2.5 %; Hematocrit 36.6 % (35-45); Hemoglobin 12.2 g/dL (11.5-14.3); Lymphocyte % 11.8 %; Mean Corpuscular Hgb Conc 33.5 g/dL (31-36); Mean Corpuscular Volume 98.5 fL (80-97); Mean Platelet Volume 9.5 fL (7.5-11.2); Nucleated Red Blood Cells % 0.1 %/100WBC (0.0-0.8); Platelet Count 153 10^3/uL (150-450); Red Blood Count 3.71 10^6/uL (3.63-4.92); Red Cell Distribution Width 14.8 % (12-17); White Blood Count 8.3 10^3/uL (3.8-11.8)
[2023-09-18] MEDS: Metoprolol Tartrate 5 mg VIAL 5 ml VIAL (1 mg/ml) IV ONE ×3 (11:00→12:26)
[2023-09-18] MEDS: Lactated Ringers 1000 ml BAG 1,000 ML IV ONE (11:04)
[2023-09-18 11:13] LABS: INR 1.39 (0.83-1.13)
[2023-09-18 11:23] LABS: High Sens Troponin Baseline 76 pg/mL (<15)
[2023-09-18 11:39] LABS: ALT 29 U/L (7-52); Albumin 3.8 g/dL (3.2-5.2); Albumin/Globulin Ratio 1.4 (1-3); Alkaline Phosphatase 102 U/L (35-149); Anion Gap 8 mmol/L (2-16); Blood Urea Nitrogen 34 mg/dL (6-24); CO2 Carbon Dioxide 22 mmol/L (22-32); Calcium 8.9 mg/dL (8.6-10.3); Chloride 109 mmol/L (101-111); Creatinine, Serum 1.29 mg/dL (0.51-0.95); Globulin 2.7 g/dL (2-4); Glucose 165 mg/dL (70-100); Sodium 139 mmol/L (135-145); Total Bilirubin 0.6 mg/dL (0.2-1.0); Total Protein 6.5 g/dL (6.4-8.9); eGFR CKD-EPI 39.7 (>60)
[2023-09-18 13:12] LABS: Potassium Redraw 4.5 mmol/L (3.5-5.0)
[2023-09-18] MEDS: Iodixanol (CONTRAST) 320 MG/ML 100 ML SDV IV ONE (13:17)
[2023-09-18] MEDS: Furosemide 40 mg/4 ml IV VIAL IV ONE (13:37)
[2023-09-18] MEDS: Esmolol 10 MG/ML IVPREMIX 2,500 MG/250 ML BAG IV SCH (13:52)
[2023-09-18 15:48] LABS: C Reactive Protein 1.57 mg/L (<8.01); Magnesium 2.1 mg/dL (1.9-2.7)
[2023-09-18] MEDS ORDERED: Metoprolol Tartrate 5 mg VIAL 5 ml VIAL (1 mg/ml) IV PRN ×4 (16:06→16:30)
[2023-09-18] MEDS: Norepinephrine 4 MG/250mL D5W 4,000 MCG/250 ML BAG IV SCH (16:12)
[2023-09-18] MEDS ORDERED: .Amiodarone 24HR ONLY IV Protocol Order Note IV ONE (17:16)
[2023-09-18 17:26] LABS: Urine Appearance Clear; Urine Bilirubin Negative (Negative); Urine Blood Negative (Negative); Urine Color Light-Yellow; Urine Glucose Negative (Negative); Urine Ketones Negative (Negative); Urine Nitrite Negative (Negative); Urine Protein Negative (Negative); Urine Specific Gravity 1.018 (1.002-1.030); Urine Urobilinogen Negative (Negative)
[2023-09-18] MEDS: Amiodarone 150 mg IVPREMIX 150 MG/100 ML BAG IV ONE (17:40)
[2023-09-18] MEDS: Amiodarone 360 MG IVPREMIX 360 MG/200 ML BAG IV SCH ×2 (17:49→23:55)
[2023-09-18] MEDS: Mometasone/Formoter 200/5 MDI INH SCH (19:22)
[2023-09-19 05:27] LABS: ABS Basophils 0.1 10^3/uL (0.0-0.1); ABS Eosinophils 0.3 10^3/uL (0.0-0.5); ABS Lymphocytes 1.5 10^3/uL (1.0-4.8); ABS Monocytes 0.5 10^3/uL (0.0-0.9); ABS Neutrophils 5.5 10^3/uL (1.5-7.6); Eosinophil % 4.4 %; Hematocrit 32.6 % (35-45); Mean Corpuscular Hemoglobin 33.3 pg (27-33); Mean Corpuscular Hgb Conc 33.8 g/dL (31-36); Mean Corpuscular Volume 98.5 fL (80-97); Mean Platelet Volume 10.2 fL (7.5-11.2); Nucleated Red Blood Cells % 0.1 %/100WBC (0.0-0.8); Platelet Count 142 10^3/uL (150-450); Red Blood Count 3.32 10^6/uL (3.63-4.92); White Blood Count 7.9 10^3/uL (3.8-11.8)
[2023-09-19 06:06] LABS: Anion Gap 9 mmol/L (2-16); Blood Urea Nitrogen 29 mg/dL (6-24); CO2 Carbon Dioxide 24 mmol/L (22-32); Calcium 7.8 mg/dL (8.6-10.3); Chloride 108 mmol/L (101-111); Creatinine, Serum 1.22 mg/dL (0.51-0.95); Glucose 129 mg/dL (70-100); Magnesium 1.9 mg/dL (1.9-2.7); Sodium 141 mmol/L (135-145); eGFR CKD-EPI 42.4 (>60)
[2023-09-19] MEDS: Magnesium Sulfate 2 gm BAG 2 GM/50 ML BAG IVPB ONE (06:21)
[2023-09-19] MEDS: SPIRIVA Respimat (tiotropium) 2.5 mcg/inh Inhaler INH SCH (07:45)
[2023-09-19] MEDS: Aspirin EC 81 mg TAB.EC (enteric coated) PO SCH (08:07)
[2023-09-19] MEDS: Furosemide 40 mg/4 ml IV VIAL IV SLOW PU ONE (09:01)
[2023-09-19 10:00] LABS: % Iron Saturation 13 % (15-55); .Transferrin 181 mg/dL (203-362); Iron 33 ug/dL (50-212); Total Iron Binding Capacity 253 mcg/dL (250-450); Unsaturated Iron Binding 220 ug/dL
[2023-09-19 10:24] LABS: Ferritin 82.8 ng/mL (11-307)
[2023-09-19 10:27] LABS: Folate > 20.00 ng/mL (5.90-24.80)
[2023-09-19 10:28] LABS: Vitamin B12 800 pg/mL (180-914)
[2023-09-19 10:31] LABS: Vitamin D Total 25(OH) 24.9 ng/mL (20-50)
[2023-09-19] MEDS: Midazolam 10 mg/10 ml VIAL 1 mg/ml 10 ml VIAL (10 mg) IV SLOW PU ONE (13:17)
[2023-09-19] MEDS: Midazolam 5 mg/5 ml VIAL 1 mg/ml 5 ml VIAL (5 mg) ONE (13:17)
[2023-09-19] MEDS: Midazolam 2 mg/2 ml VIAL 1 mg/ml 2 ml VIAL (2 mg) IV SLOW PU ONE (13:19)
[2023-09-19] MEDS: fentaNYL 100 mcg/2 ml 50 MCG/ML VIAL ONE (13:19)
[2023-09-19] MEDS: fentaNYL 100 mcg/2 ml 50 MCG/ML VIAL IV SLOW PU ONE (13:19)
[2023-09-20 08:45] LABS: ABS Basophils 0.1 10^3/uL (0.0-0.1); ABS Eosinophils 0.4 10^3/uL (0.0-0.5); ABS Lymphocytes 1.2 10^3/uL (1.0-4.8); ABS Monocytes 0.3 10^3/uL (0.0-0.9); ABS Neutrophils 5.1 10^3/uL (1.5-7.6); Eosinophil % 5.9 %; Hematocrit 34.8 % (35-45); Hemoglobin 11.7 g/dL (11.5-14.3); Lymphocyte % 17.2 %; Mean Corpuscular Hemoglobin 33.1 pg (27-33); Mean Corpuscular Hgb Conc 33.7 g/dL (31-36); Mean Corpuscular Volume 98.4 fL (80-97); Mean Platelet Volume 9.6 fL (7.5-11.2); Platelet Count 149 10^3/uL (150-450); Red Blood Count 3.54 10^6/uL (3.63-4.92); Red Cell Distribution Width 15.2 % (12-17); White Blood Count 7.1 10^3/uL (3.8-11.8)
[2023-09-20 09:44] LABS: Calcium 8.6 mg/dL (8.6-10.3); Creatinine, Serum 1.15 mg/dL (0.51-0.95); Magnesium 2.1 mg/dL (1.9-2.7); Potassium 4.2 mmol/L (3.5-5.0); eGFR CKD-EPI 45.5 (>60)
[2023-09-20 15:48] VITALS: BP 127/69
== END 2023-09-20 15:50 | disposition home or self-care (01) | DRG 308 ==
LOC: ED 10:20 → SUATTDRO 14:41 → EDHOLD 14:41 → ICU 15:50 → MEDTELE 09-19 19:51
PROVIDERS: ADMIT Internal Medicine Critical Care Medicine; ATTEND Internal Medicine